=== PATIENT | female | born 1955 | race Caucasian/White ===

== ENCOUNTER → 2017-05-23 | Outpatient (CLI) | payer BC ==
[~2017-05-23] MED LIST: ASPI-587 PO; FAMO-119 PO; LEVO125T6 PO; LISI20TA PO; MULT-963 PO; NAPR-243 PO; SIMV40TA4 PO
--- NOTE | 2017-05-23 18:54 | Diagnostic Imaging Report ---
EXAMINATION: AP view of the knees. INDICATION: Osteoarthritis. FINDINGS: There are advanced osteoarthritis changes with severe joint space narrowing in the medial compartment bilaterally with prominent osteophyte formation. There is suggestion of inferior osteophytes along the patella, on the right side that would be better evaluated on a lateral projection. The lateral compartment demonstrates preserved joint space with prominent osteophytes. IMPRESSION: Advanced osteoarthritis changes in the medial compartments bilaterally. Dictated by: Dictated on workstation # [id number]
== END ==
LOC: RAD 15:02
DX: M17.0 Bilateral primary osteoarthritis of knee (principal)
CPT/HCPCS: 73565

== ENCOUNTER 2019-12-10 09:54 | Outpatient (CLI) | payer MEDICARE, OTHER ==
[~2019-12-10] VITALS: Ht 157.5 cm; Wt 90.8 kg
[2019-12-10 10:07] VITALS: BP 172/80
[2019-12-10 10:59] LABS: BASOPHILS # (AUTO) 0.1 10^3/uL (0.0-0.1); BASOPHILS % (AUTO) 1 % (0-10); EOSINOPHILS # (AUTO) 0.2 10^3/uL (0.0-0.3); EOSINOPHILS % (AUTO) 3 % (0-10); HEMATOCRIT 40 % (35-52); HEMOGLOBIN 12.9 G/DL (11.5-16.0); LYMPHOCYTES # (AUTO) 2.1 X 10^3 (1.0-4.0); LYMPHOCYTES % (AUTO) 38 % (12-44); MEAN CORPUSCULAR HEMOGLOBIN 30 PG (25-34); MEAN CORPUSCULAR HGB CONC 33 G/DL (32-36); MEAN CORPUSCULAR VOLUME 93 FL (80-99); MEAN PLATELET VOLUME 9.2 FL (7.4-10.4); MONOCYTES # (AUTO) 0.5 X 10^3 (0.0-1.0); MONOCYTES % (AUTO) 8 % (0-12); NEUTROPHILS # (AUTO) 2.8 X 10^3 (1.8-7.8); NEUTROPHILS % (AUTO) 50 % (42-75); PLATELET COUNT 263 10^3/uL (130-400); RED CELL DISTRIBUTION WIDTH 13.3 % (10.0-14.5); WHITE BLOOD COUNT 5.6 10^3/uL (4.3-11.0)
[2019-12-10 11:01] LABS: BILIRUBIN,URINE NEGATIVE (NEGATIVE); CLARITY,URINE SL CLOUDY; COLOR,URINE YELLOW; GLUCOSE, URINE (UA) NEGATIVE (NEGATIVE); KETONES,URINE NEGATIVE (NEGATIVE); LEUKOCYTE ESTERASE ,URINE 2+ (NEGATIVE); NITRITE,URINE NEGATIVE (NEGATIVE); PROTEIN,URINE NEGATIVE (NEGATIVE)
[2019-12-10 11:08] LABS: BACTERIA,URINE MODERATE /HPF; RBC,URINE 0-2 /HPF; WBC,URINE TNTC /HPF
[2019-12-10 11:10] LABS: INR 0.9 (0.8-1.4)
--- NOTE | 2019-12-10 11:11 | Diagnostic Imaging Report ---
INDICATION: Preoperative evaluation, right knee arthroplasty. COMPARISON: None available. TECHNIQUE: Frontal and lateral radiographs of the chest dated December 10, 2019. FINDINGS: The cardiac silhouette and pulmonary vasculature are within normal limits. The lungs are clear without focal pulmonary opacity. No pleural effusion. No pneumothorax. Scattered osseous degenerative changes without acute osseous abnormality. IMPRESSION: No acute cardiopulmonary abnormality. Dictated by: Dictated on workstation # [id number]
[2019-12-10 11:20] LABS: ERYTHROCYTE SEDIMENTATION RATE 24 MM/HR (0-30)
[2019-12-10 11:22] LABS: ALANINE AMINOTRANSFERASE 17 U/L (0-55); ALBUMIN 4.4 GM/DL (3.2-4.5); ALKALINE PHOSPHATASE 64 U/L (40-136); BILIRUBIN,TOTAL 0.4 MG/DL (0.1-1.0); BUN/CREATININE RATIO 20; CALCIUM 9.8 MG/DL (8.5-10.1); CARBON DIOXIDE 25 MMOL/L (21-32); CHLORIDE 105 MMOL/L (98-107); GFR ESTIMATED > 60; GLUCOSE 123 MG/DL (70-105); SODIUM 139 MMOL/L (135-145); TOTAL PROTEIN 7.5 GM/DL (6.4-8.2)
[2019-12-10] MEDS ORDERED: NAPR-915 PO (11:41)
[2019-12-10] MEDS ORDERED: FAMO20TA3 PO (11:41)
[2019-12-10] MEDS ORDERED: MULT1TAB69 PO (11:41)
[2019-12-10] MEDS ORDERED: ESTR42.511 VG (11:41)
[2019-12-10] MEDS ORDERED: ASPI-999 PO (11:41)
[2019-12-10] MEDS ORDERED: SIMV80TA21 PO (11:41)
[2019-12-10] MEDS ORDERED: HYDR12.56 PO (11:41)
[2019-12-10] MEDS ORDERED: LEVO112T55 PO (11:41)
== END 2019-12-10 11:05 | disposition home or self-care (01) ==
LOC: PREOP 09:54
PROVIDERS: ATTEND Orthopaedic Surgery
DX: Z01.818 Encounter for other preprocedural examination (principal); Z01.812 Encounter for preprocedural laboratory examination; M17.11 Unilateral primary osteoarthritis, right knee
CPT/HCPCS: 36415; 71046; 80053; 81000; 85025; 85610; 85652; 86850; 86900; 86901; 87077; 87081; 87088; 87186; 93005

== ENCOUNTER 2019-12-17 05:51 | Inpatient (IN) | payer MEDICARE, OTHER ==
--- NOTE | 2019-12-11 10:41 | HISTORY AND PHYSICAL ---
DATE OF SERVICE: Date of service, surgery and admission will be 12/17/2019 for a right total knee arthroplasty. The patient will require regular inpatient admission for pain management, need for physical therapy due to gait abnormalities and comorbidities. HISTORY OF PRESENT ILLNESS: The patient is a 64-year-old female with longstanding bilateral knee pain. She reports right worse than left pain. She reports activity limitations because of the knees. She has undergone treatment with neural ablation. She has also undergone treatment with injections including stem cells. She reports loss of motion and progressive loss of function. Due to functional impairment and failure to improve with conservative measures, the patient has elected to proceed with total knee arthroplasty. REVIEW OF SYSTEMS: No chest pain, no shortness of breath, no dysuria. PAST MEDICAL HISTORY: Hypertension, hyperlipidemia, . PAST SURGICAL HISTORY: Tubal ligation. FAMILY HISTORY: Significant for cancer, coronary artery disease, COPD. PRIMARY CARE PROVIDER: Dr. Corona. MEDICATIONS: Lisinopril, hydrochlorothiazide, simvastatin, estradiol, aspirin. ALLERGIES: No known drug allergies. SOCIAL HISTORY: The patient denies alcohol and tobacco use. RADIOGRAPHS: Reveal severe tricompartmental osteoarthritis with severe osteophyte formation noted throughout all three compartments with loose bodies noted. PHYSICAL EXAMINATION: GENERAL: The patient is well developed, well-nourished, in no acute distress. HEENT: Normocephalic, atraumatic. Pupils are equal, round and reactive to light. Oropharynx is clear. NECK: Supple, no lymphadenopathy. LUNGS: Clear to auscultation bilaterally. HEART: Regular rate and rhythm. ABDOMEN: Soft, nontender, nondistended. EXTREMITIES: The right knee demonstrates varus alignment. She ambulates with an antalgic gait. She has flexed knee gait on her right, flexion is proximal to approximately 80 degrees. She lacks 5 degrees to full extension. No varus valgus laxity. She has marked patellofemoral crepitus with moderate effusion noted. IMPRESSION: Severe right knee osteoarthritis. PLAN: Right total knee arthroplasty. The risks, benefits, options, ramifications and recovery have been discussed at length with the patient. She understands and wishes to proceed. Job ID: [id number] DocumentID: [id number] Dictated Date: 12/03/2019 12:33:31 Lumber Inspector Date: 12/03/2019 13:04:09 Dictated By: MELIDA ZARAGOZA MD
[~2019-12-17] VITALS: Ht 157 cm; Wt 90.8 kg
[2019-12-17] VITALS (9 sets, daily range): BP systolic 78–159; BP diastolic 42–79
[~2019-12-17 05:51] MED LIST changes: +ASPI-999 PO; +ESTR42.511 VG; +FAMO20TA3 PO; +HYDR12.56 PO; +LEVO112T55 PO; +MULT1TAB69 PO; +NAPR-915 PO; +SIMV80TA21 PO
[2019-12-17] MEDS ORDERED: CEFUROXIME INJECTION 1,500 MG in WATER (STERILE) FOR INJECTION 15 ML IV ONE (06:15)
[2019-12-17] MEDS ORDERED: ONDANSETRON 4 MG/2 ML (SDV) Z0FRAN ONE (06:26)
[2019-12-17] MEDS ORDERED: fentaNYL INJECTION 100 MCG/2 ML AMP ONE (06:26)
[2019-12-17] MEDS ORDERED: SEVOFLURANE (ULTANE) 15 ML INHAL SOLN ONE (06:26)
[2019-12-17] MEDS ORDERED: BUPIVACAINE 0.5% 30 ML (SENSORCAINE) VIAL ONE (06:26)
[2019-12-17] MEDS ORDERED: DEXAMETHASONE 10 MG/ML (DECADRON) 1 ML VIAL ONE (06:26)
[2019-12-17] MEDS ORDERED: MIDAZOLAM 2 MG/2 ML (VERSED) VIAL ONE ×2 (06:26→07:25)
[2019-12-17] MEDS ORDERED: proPOfol 200 MG/20 ML (DIPRIVAN) VIAL IV ONE ×2 (06:26→09:23)
[2019-12-17] MEDS ORDERED: LIDOCAINE PF 2% 5 ML (XYLOCAINE) VIAL ONE (06:26)
[2019-12-17] MEDS ORDERED: TRANEXAMIC ACID 100 MG/ML 10 ML INJECTION IV ONE (06:34)
[2019-12-17] MEDS ORDERED: CATHETER FLUSH 10 ML SYR IV PRN (06:45)
[2019-12-17] MEDS: LACTATED RINGERS 1,000 ML IV PRN ×2 (06:56→07:31)
[2019-12-17] MEDS ORDERED: diphenhydrAMINE 50 MG/ML INJ (BENADRYL) IVP PRN (07:15)
[2019-12-17] MEDS ORDERED: ONDANSETRON 4 MG/2 ML (SDV) Z0FRAN IVP PRN ×2 (07:15→09:30)
[2019-12-17] MEDS ORDERED: morphine PCA 100 MG/100 ML BAG IV PRN (07:15)
--- NOTE | 2019-12-17 07:28 | Progress Note-Post Operative ---
Post-Operative Progess Note Surgeon (s)/Fashion Stylist (s) Surgeon MELIDA ZARAGOZA MD Fashion Stylist: Idris Hernandez Pre-Operative Diagnosis right knee primary osteoarthritis Post-Operative Diagnosis right knee primary osteoarthritis Procedure & Operative Findings Date of Procedure 12/17/19 Procedure Performed/Findings right total knee arthroplasty Anesthesia Type spinal Estimated Blood Loss Estimated blood loss (mL): minimal Specimens/Packing Specimens Removed none Packing: none MELIDA ZARAGOZA MD Dec 17, 2019 07:28
--- NOTE | 2019-12-17 07:28 | Progress Note-Pre Operative ---
Pre-Operative Progress Note H&P Reviewed The H&P was reviewed, patient examined and no changes noted. Date Seen by Provider: Dec 17, 2019 Time Seen by Provider: 07:20 Date H&P Reviewed: Dec 17, 2019 Time H&P Reviewed: 07:11 Pre-Operative Diagnosis: right knee primary osteoarthritis MELIDA ZARAGOZA MD Dec 17, 2019 07:28
[2019-12-17] MEDS ORDERED: OXYC1TAB87 PO (07:30)
[2019-12-17] MEDS ORDERED: INTRA-ARTICULAR IU ONE ×5 (07:30)
--- NOTE | 2019-12-17 07:31 | D/C HH Face to Face Order ---
D/C Face to Face Orders Reconcile Patient Problems Problems Reviewed?: Yes Instructions for Patient [facility], Patient Instructions/FollowUp: three weeks Physician to follow Patient: three weeks Discharge Diet for Home: Regular Diet Patient Data-Allergies,Ht & Wt Patient Allergies: Coded Allergies: Sulfa (Sulfonamide Antibiotics) (Verified Allergy, Unknown, Rash, 12/10/19) Height (Feet): 5 Height (Inches): 2.00 Weight (Pounds): 198 Home Health Need/Face to Face Date of Face to Face: Dec 17, 2019 Clinical Findings: Instability, Muscle weakness, Pain with ambulation, Unsteady gait I have seen Pt [id number]-kh-[id number]: Yes Discharged To: Home Diagnosis/Conditions: right total knee arthroplasty Patient is Homebound due to: Panchito fall risk due to instabilty, Muscle weakness, Pain w/ambulation Homebound Status Due to the above stated illness, injury or surgical procedure (medical condition or diagnosis) and associated clinical findings, the patient is homebound because of his/her inability to leave home except with aid of a supportive device and/or person AND leaving the home requires a considerable and taxing effort or is medically contraindicated. Pt req the following assistanc: Walker Home Health Nursing Orders Home Health Services Order: Physical Therapy-Evaluate & Treat DC right knee cara and apply steri strips 12/31/19 Home Health Infusion Therapy Line Start Date: Dec 17, 2019 Therapy Orders Therapy Orders: Physical Therapy, PT to assess for OT Therapy Specific Orders: Eval assistive deivces, Gait training, Increase strength/endurance, Provider maintenance therapy, Restore ROM Certify Stmt I certify that this patient is under my care and that I, a nurse practitioner or a physician; a activity assistant working with me, had a face to face encounter that - meets the physician face to face encounter requirements with this patient as dated. MELIDA ZARAGOZA MD Dec 17, 2019 07:31
--- NOTE | 2019-12-17 09:59 | NUR ---
PATIENT NOT ON FLOOR AT THIS TIME. Addendum: 12/17/19 at 1002 by GUILLAUME LAUREANO RN Amended: Links added.
--- NOTE | 2019-12-17 10:10 | NUR ---
JUAN R TRAVIS admitted to room 430-1, with an admitting diagnosis of RIGHT TKR, on 12/17/19 from DAY SURGERY via [facility], accompanied by Elina STANLEY RN. JUAN R TRAVIS introduced to surroundings, call light, bed controls, phone, TV, temperature control, lights, meal times, smoking policy, visitor policy, side rail policy, bathrooms and showers. Patient Rights given to patient in the handbook. JUAN R TRAVIS verbalizes understanding that [facility] is not responsible for the loss or damage to any personal effects or valuables that are kept in the patients posession during their hospitalization. JUAN R TRAVIS verbalizes understanding of Interdisciplinary Patient Education. Patient and/or family were informed about the Rapid Response Team and its purpose.
[2019-12-17] MEDS ORDERED: morphine PCA 100 MG/100 ML BAG IV ONE (10:17)
[2019-12-17] MEDS ORDERED: NS IV 1000 ML 1,000 ML ONE (10:17)
--- NOTE | 2019-12-17 10:33 | Diagnostic Imaging Report ---
INDICATION: Postoperative. TECHNIQUE: 2 post operative radiographs of the knee 9:37 AM CORRELATION STUDY: 05/23/2017 FINDINGS: There are postsurgical changes of a total knee arthroplasty. Alignment is anatomic. Installed hardware appearing unremarkable. Small areas of bone fragmentation present. Likely resurfacing of the patella. Slightly prominent spur at the inferior pole. Overlying soft tissue gas collections and skin cara are present. IMPRESSION: Postsurgical changes of a total knee replacement. Dictated by: Dictated on workstation # [id number]
[2019-12-17] MEDS ORDERED: SENNA W/DOCUSATE (SENOKOT S) TABLET ONE (10:47)
[2019-12-17] MEDS: NS IV 1000 ML 1,000 ML IV SCH ×3 (10:51→22:34)
[2019-12-17] MEDS: SENNA W/DOCUSATE (SENOKOT S) TABLET PO SCH ×2 (10:52→20:47)
--- NOTE | 2019-12-17 11:34 | NUR ---
MORPHINE SULFATE 100 MG BAG AND 1 LITER BAG OF NORMAL SALINE REMOVED FROM OMNICELL VIA AND OVERRIDE SO THIS RN COULD START HER MORPHINE GRAND SCRIBE PER DR. ZARAGOZA'S ORDERS. THIS RN WILL CONTINUE TO MONITOR THIS PATIENT THROUGHOUT THE REMAINDER OF THIS SHIFT.
--- NOTE | 2019-12-17 12:20 | Progress Note ---
Standard Progress Note Progress Notes/Assess & Plan Date Seen by a Provider: Dec 17, 2019 Time Seen by a Provider: 12:00 Progress/Assessment & Plan post op check No complaints radiographs--HW well positioned without fracture. RLE--2 plus DP pulse with brisk cap refill. spinal still in effect s/p RTKA mobilize when able MELIDA ZARAGOZA MD Dec 17, 2019 12:20
--- NOTE | 2019-12-17 13:51 | OPERATIVE REPORT ---
DATE OF SERVICE: 12/17/2019 PREOPERATIVE DIAGNOSIS: Right knee primary osteoarthritis. POSTOPERATIVE DIAGNOSIS: Right knee primary osteoarthritis. PROCEDURE: Right total knee arthroplasty. SURGEON: Mateo Zaragoza MD ACETALDEHYDE CONVERTER OPERATOR: Idris Hernandez, who assisted throughout the procedure and closed the incision. ANESTHESIA: General endotracheal by Dr. Su. TOURNIQUET TIME: Approximately 65 minutes at 300 mmHg. ESTIMATED BLOOD LOSS: Minimal. DRAINS: None. COMPLICATIONS: None. POSTOPERATIVE PLAN: Routine protocol. The patient was transferred to recovery room awake and stable condition. MATERIALS: Microport cemented size 5 femur, cemented size 5 tibia with a 12 mm insert and cemented size 29 patellar button. STATEMENT OF MEDICAL NECESSITY: The patient is a 64-year-old female with longstanding progressive right knee pain. Radiographs revealed severe tricompartmental osteoarthritis. She tried injections, anti-inflammatories as well as pain management without relief and due to functional impairment and failure to improve with conservative measures, the patient elected to proceed with surgical intervention. DESCRIPTION OF PROCEDURE: After risks and benefits of procedure were discussed and questions were answered, an informed consent was signed and placed on chart, the operative site was confirmed in the preoperative holding area initialed by the surgeon. The patient was then transferred to the operating room. After adequate levels of regional anesthetic were obtained, a timeout was called, confirming the operative site. The right lower extremity was prepped and draped in the usual sterile fashion with the leg elevated and the knee flexed, tourniquet was inflated to 300 mmHg. Standard anterior approach was utilized. Hemostasis was obtained with cautery. Medial parapatellar arthrotomy was performed leaving 1 cm cuff on the patella for later reattachment. A portion of the fat pad was resected. There was a large loose body anteriorly as well as superiorly. These were resected. Subperiosteal release was performed on the proximal medial tibia being careful stay on the bony surface. The patella was prepared by resecting 10 mm off the undersurface using the freehand technique. The peg guide was placed and peg holes were drilled. The ACL was resected. Intramedullary guide was passed into the femur. The distal cutting block was placed. Distal cut was made. Femur sized to a size 5, the 5 cutting block was placed parallel to the epicondylar axis and cuts were made from posterior to anterior. Subperiosteal release was then carefully performed on the posterior distal femur, being careful to stay on the bony surface. There were multiple loose bodies posteriorly, which were resected without complications. The intramedullary guide was then passed into the tibia. The cutting block was placed and drop yin transected the intermalleolar axis the cut was made. The five baseplate was pinned into position. The drop yin transected the intermalleolar axis. This was prepared with the drill and keel punch. The trials were inserted. The trochlear cut was made. With a 12 mm insert full extension was easily obtained, 120 degrees of flexion with gravity was easily obtained. The patella tracked well. There was no anterior/posterior or medial/lateral laxity in flexion or full extension. The trials were removed. The joint was irrigated with pulse lavage. Periarticular block was placed in the posterior capsule, medial and lateral retinaculum extensor mechanism subcutaneous tissues. The bone ends were irrigated and dried. Tibial baseplate was cemented into position and excessive cement was removed. Superior surface was irrigated and dried and polyethylene insert was placed. Distal femur was irrigated and the femoral prosthesis was cemented into position. The undersurface of patella was irrigated and dried. The patellar button was cemented into position. The knee was held in full extension until cement had cured. Once the cement had cured, the knee was taken through range of motion. Full extension was easily obtained. 120 degrees of flexion with gravity was easily obtained. There was no anterior/posterior or medial/lateral laxity in flexion or extension. The joint was further irrigated with pulse lavage. Arthrotomy was closed with #2 Tevdek in bsjcrb-pv-[id number] fashion. The wound was further irrigated. 0 Vicryl was used to deep subcutaneous tissue and 2-0 Vicryl for the superficial subcutaneous tissue. Prior to wound closure was assured the patella tracked well and there was no undue tension noted at the repair site. [place] used on the skin. A soft dressing was applied. The tourniquet was deflated. The patient was transferred to recovery room awake and in stable condition. Job ID: [id number] DocumentID: [id number] Dictated Date: 12/17/2019 09:28:32 Link Assembler Date: 12/17/2019 13:50:34 Dictated By: MATEO ZARAGOZA MD
--- NOTE | 2019-12-17 14:05 | Physical Therapy Evaluation ---
PT Evaluation-General Medical Diagnosis Admission Date Dec 17, 2019 at 05:51 Medical Diagnosis: Right TKA Onset Date: Dec 17, 2019 Therapy Diagnosis Therapy Diagnosis: Muscle weakness, loss of ROM Height/Weight Height (Feet): 5 Height (Inches): 2.00 Weight (Pounds): 198 Precautions Precautions/Isolations: Fall Prevention, Standard Precautions Weight Bear Status Right Lower Extremity: Right Weight Bearing/Tolerated Referral Physician: David Reason for Referral: Evaluation/Treatment Medical History Pertinent Medical History: HTN Current History Patient presents post R TKA Reviewed History: Yes Social History Home: Single Level Current Living Status: Spouse Entry Into Home: Stairs With Railing PT Steps Into Home: 5 PT Steps Inside Home: 0 Prior Prior Level of Function SCALE: Activities may be completed with or without assistive devices. 9-Zyaopyztng-bjbabat completes the activity by him/herself with no assistance from a helper. 5-Set-up or Clean-up Assistance-helper sets up or cleans up; patient completes activity. [place] assists only prior to or following the activity. 4-Supervision or Touching Assistance-helper provides verbal cues and/or touching/steadying and/or contact guard assistance as patient completes activity. Assistance may be provided throughout the activity or intermittently. 3-Partial/Moderate Assistance-helper does LESS THAN HALF the effort. [place] lifts, holds or supports trunk or limbs, but provides less than half the effort. 2-Substantial/Maximal Assistance-helper does MORE THAN HALF the effort. [place] lifts or holds trunk or limbs and provides more than half the effort. 6-Vdekaajqe-zxsgzc does ALL the effort. Patient does none of the effort to complete the activity. Or, the assistance of 2 or more helpers is required for the patient to complete the activity. If activity was not attempted, code reason: 7-Patient Refused. 9-Not Applicable-not attempted and the patient did not perform the activity before the current illness, exacerbation or injury. 10-Not Attempted due to Environmental Limitations-(lack of equipment, weather restraints, etc.). 88-Not Attempted due to Medical Conditions or Safety Concerns. Bed Mobility: 6 Transfers (B,C,W/C): 6 Gait: 6 Stairs: 6 Indoor Mobility (Ambulation): Independent Stairs: Independent Prior Devices Use: None PT Evaluation-Current Subjective Patient is agreeable to therapy at this time. Pain Numeric Pain Scale: 3 Location: Right Location Body Site: Knee Pt/Family Goals To get stronger and get home. Objective Patient Orientation: Person, Place, Time, Situation Attachments: IV ROM/Strength ROM Lower Extremities R knee lacking abut 5 degrees of extension to about 90 degrees of flexion. Strength Lower Extremities Expected RLE weakness following surgery. Integumentary/Posture Integumentary See nursing notes. Sensory Vision: Functional Hearing: Functional Sensation Right Lower Extremit: Impaired Sensation Left Lower Extremity: Intact Transfers Roll Left to Right (QC): 6 Sit to Lying (QC): 5 Lying to Sitting/Side of Bed(Q: 5 Sit to Stand (QC): 4 Chair/Tfn-ft-Hstcv Xfer(QC): 4 Toilet Transfer: 4 Gait Does the Patient Walk?: Yes Mode of Locomotion: Walk Anticipated Mode of Locomotion: Walk Walk 10 feet (QC): 4 Distance: 40' Gait Assistive Device: FWW Comments/Gait Description CGA for safety. Patient had spinal block. Patient is stable and able to bear weight on RLE. Good step through ambulation. Wheelchair Training Does the Pt Use a Wheelchair?: No Balance Sitting Static: Good Sitting Dynamic: Good Standing Static: Good Standing Dynamic: Good Treatment RLE supine exercises x 10: ankle pumps, SAQ, SLR, quad sets, and heel slides. Assessment/Needs Patient tolerates exercises well and is able to do them all actively with no assistance. Patient has limited ROM with ankle pumps at this time. Patient ambulates well to and from the bathroom. Patient in bed with call light and bedside table within reach, CPM on, set at 0/60. Rehab Potential: Good PT Usp Goals Net Mvc Developer Goals PT Usp Goals Time Frame: Dec 24, 2019 Roll Left & Right (QC): 6 Sit to Lying (QC): 6 Lying-Sitting on Side/Bed(QC): 6 Sit to Stand (QC): 6 Chair/Zag-ed-Uzptb Xfer(QC): 6 Toilet Transfer (QC): 6 Does the Patient Walk: Yes Walk 10 feet (QC): 6 Walk 50ft with 2 Turns (QC): 6 Walk 150 ft (QC): 6 1 Step (curb) (QC): 4 4 Steps (QC): 4 PT Plan Problem List Problem List: Activity Tolerance, Functional Strength, Safety, Balance, Gait, Transfer, Bed Mobility, ROM Treatment/Plan Treatment Plan: Continue Plan of Care Treatment Plan: Bed Mobility, Education, Functional Activity Deejay, Functional Strength, Gait, Safety, Therapeutic Exercise, Transfers Treatment Duration: Dec 24, 2019 Frequency: 11 times per week Estimated Hrs Per Day: .25 hour per day Patient and/or Family Agrees t: Yes Safety Risks/Education Patient Education: Gait Training, Transfer Techniques, Correct Positioning, Safety Issues Teaching Recipient: Patient Teaching Methods: Demonstration, Discussion Response to Teaching: Reinforcement Needed Discharge Recommendations Plan Patient will perform bed mobility training, step training, transfer training, gait training, and balance training. Therapy Discharge Recommendati: Home & Family Time/GCodes Time In: 1305 Time Out: 1330 Total Billed Treatment Time: 25 Total Billed Treatment 1 visit EVL 12 FA 13 KAMERON BE PT Dec 17, 2019 14:05
[2019-12-17] MEDS: CEFUROXIME INJECTION 750 MG in WATER (STERILE) FOR INJECTION 10 ML IV SCH ×2 (14:36→23:57)
[2019-12-17] MEDS: oxyCODONE/APAP 5/325MG (PERCOCET 5) TABLET PO PRN ×3 (15:42→22:40)
[2019-12-17] MEDS: ACETAMINOPHEN 325 MG TABLET PO PRN ×2 (16:17→20:49)
[2019-12-17] MEDS ORDERED: hydrALAZINE (APESOLINE) 20 MG/ML VIAL IV PRN (16:45)
--- NOTE | 2019-12-17 16:51 | Consultation - Hospitalist ---
HPI History of Present Illness: HPI/Chief Complaint Alem Núñez is a 64-year-old female with past medical history of hypertension, hyperlipidemia, hypothyroidism, GERD, osteoarthritis, who presented for total kn ee replacement. She underwent to surgery today and he reportedly went well. She has no complaints or concerns postoperatively. Eyes any fevers, chills, chest pain, shortness of breath, abdominal pain, nausea, vomiting, or diarrhea. Source: patient Exam Limitations: no limitations Date Seen 12/17/19 Attending Physician Mateo Jackson MD PCP Brayan Corona DO Referring Physician Date of Admission Dec 17, 2019 at 05:51 Home Medications & Allergies Home Medications Reviewed patient Home Medication Reconciliation performed by pharmacy medication reconciliations ophthalmic medical technician and/or nursing. Patients Allergies have been reviewed. Allergies Allergies Coded Allergies Sulfa (Sulfonamide Antibiotics) (Verified Allergy, Unknown, Rash, 12/10/19) Past Thavcev-Hwavad-Snmgax Hx Past Med/Social Hx: Reviewed Nursing Past Med/Soc Hx Patient Social History Alcohol Use: Denies Use Recreational Drug Use: No Smoking Status: Never a Smoker Physical Abuse Screen: No Sexual Abuse: No Recent Foreign Travel: No Contact w/other who traveled: No Recent Hopitalizations: No Recent Infectious Disease Expo: No Seasonal Allergies Seasonal Allergies: Yes Past Medical History Musculoskeletal: Arthritis History of Blood Disorders: No Family History Cardiovascular disease 19 MOTHER Diabetes mellitus 19 FATHER G8 BROTHER Hypertension 19 MOTHER Kidney disease 19 FATHER (KIDNEY CA) Thyroid disease G8 SISTER Review of Systems Constitutional: no symptoms reported EENTM: no symptoms reported Respiratory: no symptoms reported Cardiovascular: no symptoms reported Gastrointestinal: no symptoms reported Genitourinary: no symptoms reported Musculoskeletal: no symptoms reported Skin: no symptoms reported Psychiatric/Neurological: No Symptoms Reported Physical Exam Physical Exam Vital Signs Vital Signs - First Documented Capillary Refill : Less Than 3 Seconds Height, Weight, BMI Height: 5'2.00" Weight: 198lbs. oz. 89.597880tp; 36.83 BMI Method: General Appearance: No Apparent Distress, Obese Respiratory: Lungs Clear, Normal Breath Sounds, No Respiratory Distress Cardiovascular: Regular Rate, Rhythm, No Edema, No Murmur Gastrointestinal: Normal Bowel Sounds, Non Tender, Soft Extremity: No Pedal Edema, Other (Right knee wrapped) Neurologic/Psychiatric: Alert, Oriented x3, No Motor/Sensory Deficits, Normal Mood/Affect Skin: Normal Color, Warm/Dry Results Results/Procedures Labs Patient resulted labs reviewed. Assessment/Plan Assessment and Plan Assess & Plan/Chief Complaint Status post total knee replacement Osteoarthritis Underwent surgery 3/4 Pain regimen ordered Bowel regimen in place Incentive spirometer PT/OT Hypertension Continue lisinopril Hold hydrochlorothiazide Hydralazine as needed Hypothyroidism Continue Synthroid DVT prophylaxis: Lovenox Thank you for the consult. Do not hesitate to contact the hospitalist group any questions or concerns. Diagnosis/Problems Diagnosis/Problems (1) Status post total knee replacement, right Status: Acute (2) Osteoarthritis of right knee Status: Chronic (3) Hypertension Status: Chronic Qualifiers: Hypertension type: essential hypertension Qualified Codes: I10 - Essential (primary) hypertension (4) Hypothyroidism Status: Chronic Clinical Quality Measures DVT/VTE Risk/Contraindication: Risk Factor Score Per Nursin RFS Level Per Nursing on Admit: 3=High ASPEN ALDRIDGE MD Dec 17, 2019 16:51
[2019-12-17] MEDS: lisINopril 20 MG (PRINIVIL) TABLET PO SCH (20:48)
[2019-12-17] MEDS ORDERED: lisINopril 40 MG (PRINIVIL) TABLET PO SCH (21:00)
[2019-12-18] VITALS: BP 131/73
[2019-12-18 04:00] VITALS: BP 128/60
[2019-12-18] MEDS: oxyCODONE/APAP 5/325MG (PERCOCET 5) TABLET PO PRN ×7 (04:30→23:59)
[2019-12-18] MEDS: MULTIVIT W/MINERALS TAB (THERAGRAN M) PO SCH (06:17)
[2019-12-18] MEDS: ENOXAPARIN 30 MG/0.3 ML (LOVENOX) SYR SC SCH ×2 (06:17→18:55)
[2019-12-18 06:30] LABS: HEMOGLOBIN 9.2 G/DL (11.5-16.0)
[2019-12-18 06:49] LABS: BUN/CREATININE RATIO 16; CALCIUM 7.8 MG/DL (8.5-10.1); CARBON DIOXIDE 23 MMOL/L (21-32); CHLORIDE 100 MMOL/L (98-107); CREATININE SERUM 0.69 MG/DL (0.60-1.30); GFR ESTIMATED > 60; GLUCOSE 114 MG/DL (70-105); POTASSIUM 3.8 MMOL/L (3.6-5.0); SODIUM 130 MMOL/L (135-145)
--- NOTE | 2019-12-18 07:38 | Anesthesia-General Post-Op ---
General Patient Condition Mental Status/LOC: Same as Preop Cardiovascular: Satisfactory Nausea/Vomiting: Absent Respiratory: Satisfactory Pain: Controlled Complications: Absent Post Op Complications Complications None Follow Up Care/Instructions Patient Instructions None needed. Anesthesia/Patient Condition Patient Condition Patient is doing well, no complaints, stable vital signs, no apparent adverse anesthesia problems. No complications reported per nursing. EMMANUELLE CHENEY CRNA Dec 18, 2019 07:38
--- NOTE | 2019-12-18 07:55 | Progress Note ---
Standard Progress Note Progress Notes/Assess & Plan Date Seen by a Provider: Dec 18, 2019 Time Seen by a Provider: 07:53 Progress/Assessment & Plan post op check No complaints radiographs--HW well positioned without fracture. RLE--2 plus DP pulse with brisk cap refill. spinal still in effect s/p RTKA mobilize when able Final Diagnosis NO complaints has been febrile, but was so pre op as well. Denies systemic illnesses. Recently treated for UTI Vital Signs Date Time Temp Pulse Resp B/P (MAP) Pulse Ox O2 Delivery O2 Flow Rate FiO2 12/18/19 06:25 18 12/18/19 04:00 38.4 78 20 128/60 (82) 93 Room Air 12/18/19 00:00 38.3 73 18 131/73 (92) 95 Room Air 12/17/19 21:19 38.7 12/17/19 20:50 95 Room Air 12/17/19 20:49 38.4 12/17/19 19:41 38.4 75 18 118/67 (84) 95 Room Air 12/17/19 16:17 39.4 12/17/19 16:00 39.4 82 18 153/79 (103) 96 Room Air 12/17/19 11:33 37.9 18 12/17/19 11:00 37.4 77 18 149/74 (99) 94 Room Air 12/17/19 10:50 37.9 18 12/17/19 10:15 Room Air 12/17/19 10:10 94 Room Air 12/17/19 10:00 Room Air 12/17/19 10:00 36.5 16 106/49 (68) 96 Room Air 12/17/19 09:50 Room Air 12/17/19 09:50 16 113/50 (71) 96 Room Air 12/17/19 09:40 16 108/55 (72) 96 Room Air 12/17/19 09:35 Room Air 12/17/19 09:30 16 78/68 (71) 94 Room Air 12/17/19 09:20 37.6 16 84/42 (56) 94 Room Air I & O 12/18/19 07:00 Intake Total 4175 ml Output Total 525 ml Balance 3650 ml Laboratory Tests Test 12/18/19 05:47 Range/Units Hemoglobin 9.2 L 11.5-16.0 G/DL Hematocrit 29 L 35-52 % Sodium Level 130 L 135-145 MMOL/L Potassium Level 3.8 3.6-5.0 MMOL/L Chloride Level 100 98-107 MMOL/L Carbon Dioxide Level 23 21-32 MMOL/L Anion Gap 7 5-14 MMOL/L Blood Urea Nitrogen 11 7-18 MG/DL Creatinine 0.69 0.60-1.30 MG/DL Estimat Glomerular Filtration Rate > 60 BUN/Creatinine Ratio 16 Glucose Level 114 H 70-105 MG/DL Calcium Level 7.8 L 8.5-10.1 MG/DL RLE--NVI distally no calf tenderness neg SLR s/p RTKA doing well will check UA no need for blood cultures MELIDA ZARAGOZA MD Dec 18, 2019 07:55
[2019-12-18 08:00] VITALS: BP 117/63
[2019-12-18] MEDS: SENNA W/DOCUSATE (SENOKOT S) TABLET PO SCH ×2 (08:35→19:40)
[2019-12-18] MEDS: ASPIRIN E.C. 81 MG (ECOTRIN) TAB PO SCH (08:35)
[2019-12-18] MEDS: lisINopril 20 MG (PRINIVIL) TABLET PO SCH ×2 (08:35→19:40)
--- NOTE | 2019-12-18 10:05 | Physical Therapy Daily Note ---
PT Daily Note-Current Subjective Patient is agreeable to therapy at this time. Pain Numeric Pain Scale: 3 Location: Right Location Body Site: Face Appearance Patient in bed with call light and bedside table within reach. CPM on and set at 0/66. Mental Status Patient Orientation: Person, Place, Time, Situation Attachments: IV Transfers SCALE: Activities may be completed with or without assistive devices. 1-Mckpzjmvaa-cnrfjyz completes the activity by him/herself with no assistance from a helper. 5-Set-up or Clean-up Assistance-helper sets up or cleans up; patient completes activity. [place] assists only prior to or following the activity. 4-Supervision or Touching Assistance-helper provides verbal cues and/or touching/steadying and/or contact guard assistance as patient completes activity. Assistance may be provided throughout the activity or intermittently. 3-Partial/Moderate Assistance-helper does LESS THAN HALF the effort. [place] lifts, holds or supports trunk or limbs, but provides less than half the effort. 2-Substantial/Maximal Assistance-helper does MORE THAN HALF the effort. [place] lifts or holds trunk or limbs and provides more than half the effort. 8-Nhfnvvoat-lklakc does ALL the effort. Patient does none of the effort to complete the activity. Or, the assistance of 2 or more helpers is required for the patient to complete the activity. If activity was not attempted, code reason: 7-Patient Refused. 9-Not Applicable-not attempted and the patient did not perform the activity before the current illness, exacerbation or injury. 10-Not Attempted due to Environmental Limitations-(lack of equipment, weather restraints, etc.). 88-Not Attempted due to Medical Conditions or Safety Concerns. Roll Left & Right (QC): 6 Sit to Lying (QC): 6 Lying to Sitting/Side of Bed(Q: 6 Sit to Stand (QC): 4 Toilet Transfer (QC): 4 Weight Bearing Right Lower Extremity: Right Weight Bearing/Tolerated Gait Training Does the Patient Walk?: Yes Distance: 150' Walk 10 feet (QC): 4 Walk 50 ft with 2 Turns(QC): 4 Walk 150 ft (QC): 4 Gait Persons Needed: 1 Gait Assistive Device: FWW Patient is starting to walk with normal gait cycle with heel toe pattern. Patient LLE bowed out. Wheelchair Training Does the Pt Use a Wheelchair?: No Exercises Supine Ex: Ankle pumps, Quad Set, Heel Slides, Short Arc Quads, Straight leg raise Supine Reps: 10 (RLE) Treatments RLE exercises, bed mobility, transfers, ambulation Assessment Current Status: Good Progress Patient tolerates exercises well and is able to perform all actively with no assistance. Patient is steady during ambulation and is walking with heel toe pattern. PT Field Marketing Lead Goals Field Marketing Lead Goals PT Skilled Nursing Goals Time Frame: Dec 24, 2019 Roll Left & Right (QC): 6 Sit to Lying (QC): 6 Lying-Sitting on Side/Bed(QC): 6 Sit to Stand (QC): 6 Chair/Iae-ko-Rtvph Xfer(QC): 6 Toilet Transfer (QC): 6 Does the Patient Walk: Yes Walk 10 feet (QC): 6 Walk 50ft with 2 Turns (QC): 6 Walk 150 ft (QC): 6 1 Step (curb) (QC): 4 4 Steps (QC): 4 PT Plan Problem List Problem List: Activity Tolerance, Functional Strength, Safety, Balance, Gait, Transfer, Bed Mobility, ROM Treatment/Plan Treatment Plan: Continue Plan of Care Treatment Plan: Bed Mobility, Education, Functional Activity Deejay, Functional Strength, Gait, Safety, Therapeutic Exercise, Transfers Treatment Duration: Dec 24, 2019 Frequency: 11 times per week Estimated Hrs Per Day: .25 hour per day Patient and/or Family Agrees t: Yes Safety Risks/Education Patient Education: Gait Training, Transfer Techniques Teaching Recipient: Patient Teaching Methods: Demonstration, Discussion Response to Teaching: Reinforcement Needed Time/GCodes Time In: 856 Time Out: 920 Total Billed Treatment Time: 24 Total Billed Treatment 1 visit GT 12 EX 12 ELBA KELLEY PT Dec 18, 2019 10:05
--- NOTE | 2019-12-18 11:30 | NUR ---
CM/SS visited patient for discharge planning. Plan: The patient will return home with with outpatient physical and a front wheeled walker. Outpatient Physical Therapy: The patient was provided with a Patient Preference Form. She stated that she already talked to Dr. Jackson about using outpatient in [place] and approved it. The patient has used [facility] with Yung Rehman previously and would like to continue using them. CM/SS called and spoke to Will ([phone]) and faxed over referral information and script. DME: The patient was provided with the preference form and chose [facility] [place] to get the front wheeled walker. CM/SS contacted [facility] to get a script for the walker. CM/SS will fax the script when available.
[2019-12-18] MEDS: NS IV 1000 ML 1,000 ML IV SCH ×2 (11:32→23:56)
[2019-12-18 12:00] VITALS: BP 112/68
--- NOTE | 2019-12-18 13:11 | Occupational Therapy Eval ---
OT Evaluation-General/PLF Medical Diagnosis Admission Date Dec 17, 2019 at 05:51 Medical Diagnosis: Right TKA Onset Date: Dec 17, 2019 Therapy Diagnosis Therapy Diagnosis: decr functiona mobility, decr self care Height/Weight Height (Feet): 5 Height (Inches): 2.00 Weight (Pounds): 198 Precautions Precautions/Isolations: Fall Prevention, Standard Precautions Safety Interventions: None Referral Physician: David Referral Reason: Evaluation/Treatment Medical History Pertinent Medical History: HTN Current History Elective R total knee 12/17/2019 Reviewed History: Yes Social History Home: Single Level Current Living Status: Spouse Entry Into Home: Stairs With Railing Steps Into Home: 5 Steps Inside Home: 0 ADL-Prior Level of Function SCALE: Activities may be completed with or without assistive devices. 9-Gckqiagmnf-zisordu completes the activity by him/herself with no assistance from a helper. 5-Set-up or Clean-up Assistance-helper sets up or cleans up; patient completes activity. [place] assists only prior to or following the activity. 4-Supervision or Touching Assistance-helper provides verbal cues and/or touching/steadying and/or contact guard assistance as patient completes activity. Assistance may be provided throughout the activity or intermittently. 3-Partial/Moderate Assistance-helper does LESS THAN HALF the effort. [place] lifts, holds or supports trunk or limbs, but provides less than half the effort. 2-Substantial/Maximal Assistance-helper does MORE THAN HALF the effort. [place] lifts or holds trunk or limbs and provides more than half the effort. 8-Mqzhwwyzb-epejlj does ALL the effort. Patient does none of the effort to complete the activity. Or, the assistance of 2 or more helpers is required for the patient to complete the activity. If activity was not attempted, code reason: 7-Patient Refused. 9-Not Applicable-not attempted and the patient did not perform the activity before the current illness, exacerbation or injury. 10-Not Attempted due to Environmental Limitations-(lack of equipment, weather restraints, etc.). 88-Not Attempted due to Medical Conditions or Safety Concerns. ADL PLOF Comments Pt reported that she needed no help with ADLs prior to surgery. Her bathroom has been modified with tall toilet and grab bars, and she has a shower chair. She has a toilet riser as well. Her will be able to help her at home if needed Self Care: Independent Functional Cognition: Independent DME/Equipment: Grab Bars, Tall Toilet, Tub/Shower, Toilet/Riser Occupation: retired OT Current Status Subjective Pt seen in room, up in recliner, agreeable to OT. Pt reported pain well managed. Appearance Alert, cooperative Mental Status/Objective Patient Orientation: Person, Place, Time, Situation Attachments: IV, Polar Pack Current Upper Extremity ROM Grossly WFL bilat Upper Extremity Strength Pt reported WFL bilat ADL-Treatment ADL-Current Pt has walked 150 feet with PT with FWW today. Got up from recliner without assistance and transferred to sit EOB, then get in bed without help. Pt has modified ADLs at home in the past and will have her available if she needs help. No skilled OT needs identified, with patient agreement. Education OT Patient Education: Modified ADL techniques, Purpose of tx/functional activities, Rehab process, Safety issues, Use of adapted equipment Teaching Recipient: Patient Teaching Methods: Discussion Response to Teaching: Verbalize Understanding OT Newspaper Editor Managing Goals Longterm Goals Time Frame: Dec 18, 2019 1=Demonstrate adherence to instructed precautions during ADL tasks. 2=Patient will verbalize/demonstrate understanding of assistive devices/modifications for ADL. 3=Patient will improve strength/tolerance for activity to enable patient to perform ADL's. OT Education/Plan Problem List/Assessment Assessment: No Skilled OT Needs ID'd Pt has no identified skilled OT needs. She has previously modified her ADLs and will have help at home if she needs it. DC OT Discharge Recommendations Plan Discontinue OT Plan/Recommendations: Discontinue OT Treatment Plan/Plan of Care Treatment,Training & Education: No (DC OT) Patient would benefit from OT for education, treatment and training to promote independence in ADL's, mobility, safety and/or upper extremity function for ADL's. Plan of Care: OTHER (DC OT) Treatment Duration: Dec 18, 2019 Frequency: 1 time per week Rehab Potential: Good Time/GCodes Start Time: 12:48 Stop Time: 13:03 Total Time Billed (hr/min): 16 Billed Treatment Time visit, 16 minutes evaluation low intensity SILAS COELLO OT Dec 18, 2019 13:11
--- NOTE | 2019-12-18 14:43 | Physical Therapy Daily Note ---
PT Daily Note-Current Subjective Patient is agreeable to therapy at this time. Pain Numeric Pain Scale: 6 Location: Right Location Body Site: Knee Appearance Patient in bed with call light and bedside table within reach. Family present. CPM on, set at 0/70. Mental Status Patient Orientation: Person, Place, Time, Situation Transfers SCALE: Activities may be completed with or without assistive devices. 1-Wjdjrxvzcs-lnbbnmk completes the activity by him/herself with no assistance from a helper. 5-Set-up or Clean-up Assistance-helper sets up or cleans up; patient completes activity. [place] assists only prior to or following the activity. 4-Supervision or Touching Assistance-helper provides verbal cues and/or touching/steadying and/or contact guard assistance as patient completes activity. Assistance may be provided throughout the activity or intermittently. 3-Partial/Moderate Assistance-helper does LESS THAN HALF the effort. [place] lifts, holds or supports trunk or limbs, but provides less than half the effort. 2-Substantial/Maximal Assistance-helper does MORE THAN HALF the effort. [place] lifts or holds trunk or limbs and provides more than half the effort. 1-Yrkjcohfn-jqnnyr does ALL the effort. Patient does none of the effort to complete the activity. Or, the assistance of 2 or more helpers is required for the patient to complete the activity. If activity was not attempted, code reason: 7-Patient Refused. 9-Not Applicable-not attempted and the patient did not perform the activity before the current illness, exacerbation or injury. 10-Not Attempted due to Environmental Limitations-(lack of equipment, weather restraints, etc.). 88-Not Attempted due to Medical Conditions or Safety Concerns. Roll Left & Right (QC): 6 Sit to Lying (QC): 6 Lying to Sitting/Side of Bed(Q: 6 Sit to Stand (QC): 4 Toilet Transfer (QC): 4 Weight Bearing Right Lower Extremity: Right Weight Bearing/Tolerated Gait Training Does the Patient Walk?: Yes Distance: 200' Walk 10 feet (QC): 4 Walk 50 ft with 2 Turns(QC): 4 Walk 150 ft (QC): 4 Gait Persons Needed: 1 Gait Assistive Device: FWW CGA for safety. Patient is walking with a fairly normal gait sequence, she is walking heel toe and getting knee flexion as she walks. Exercises Supine Ex: Ankle pumps, Quad Set, Heel Slides, Short Arc Quads, Straight leg raise Supine Reps: 10 (RLE) Treatments RLE exercises, bed mobility, transfers, ambulation. Assessment Current Status: Good Progress Patient tolerates exercises well and is able to perform them all IND with no assistance. Patient is steady during ambulation. PT Short Term Goals Short Term Goals Time Frame: Dec 18, 2019 PT Senior Living Goals Medical Collector Goals PT Medical Collector Goals Time Frame: Dec 24, 2019 Roll Left & Right (QC): 6 Sit to Lying (QC): 6 Lying-Sitting on Side/Bed(QC): 6 Sit to Stand (QC): 6 Chair/Fhz-fa-Iewoy Xfer(QC): 6 Toilet Transfer (QC): 6 Does the Patient Walk: Yes Walk 10 feet (QC): 6 Walk 50ft with 2 Turns (QC): 6 Walk 150 ft (QC): 6 1 Step (curb) (QC): 4 4 Steps (QC): 4 PT Plan Problem List Problem List: Activity Tolerance, Functional Strength, Safety, Balance, Gait, Transfer, Bed Mobility, ROM Treatment/Plan Treatment Plan: Continue Plan of Care Treatment Plan: Bed Mobility, Education, Functional Activity Deejay, Functional Strength, Gait, Safety, Therapeutic Exercise, Transfers Treatment Duration: Dec 24, 2019 Frequency: 11 times per week Estimated Hrs Per Day: .25 hour per day Patient and/or Family Agrees t: Yes Safety Risks/Education Patient Education: Gait Training, Transfer Techniques Teaching Recipient: Patient Teaching Methods: Demonstration, Discussion Response to Teaching: Reinforcement Needed Time/GCodes Time In: 1352 Time Out: 1421 Total Billed Treatment Time: 29 Total Billed Treatment 1 visit GT 14 EX 15 ELBA KELLEY PT Dec 18, 2019 14:43
--- NOTE | 2019-12-18 15:46 | NUR ---
IRF Evaluation Order received to evaluate patient for the ARU. Chart review complete and it appears patient is ambulating (200ft, FWW) and transferring with SBA. Additionally, discharge planning has taken place and it appears patient intends to return home with outpatient therapy. Thank you for this referral.
[2019-12-18 15:59] VITALS: BP 125/76
[2019-12-18 19:33] VITALS: BP 132/64
[2019-12-18 19:34] LABS: BILIRUBIN,URINE NEGATIVE (NEGATIVE); CLARITY,URINE CLEAR; COLOR,URINE YELLOW; GLUCOSE, URINE (UA) NEGATIVE (NEGATIVE); KETONES,URINE NEGATIVE (NEGATIVE); LEUKOCYTE ESTERASE ,URINE TRACE (NEGATIVE); NITRITE,URINE NEGATIVE (NEGATIVE); PROTEIN,URINE NEGATIVE (NEGATIVE)
[2019-12-18 19:47] LABS: BACTERIA,URINE TRACE /HPF; RBC,URINE RARE /HPF; WBC,URINE 0-2 /HPF
[2019-12-19] VITALS: BP 131/60
[2019-12-19] MEDS: oxyCODONE/APAP 5/325MG (PERCOCET 5) TABLET PO PRN ×4 (03:59→11:30)
[2019-12-19 04:10] VITALS: BP 148/65
--- NOTE | 2019-12-19 05:01 | DISCHARGE SUMMARY ---
DATE OF SERVICE: 12/19/2019 DIAGNOSES: 1. Right knee primary osteoarthritis. 2. Hypertension. 3. Hyperlipidemia. PROCEDURE: Right total knee arthroplasty. SUMMARY: The patient is a 64-year-old female who underwent a right total knee arthroplasty the day of admission. Postoperatively, she did very well. At the time of discharge, her wound was clean and dry. She had no calf tenderness. Negative Homans sign. She had cleared physical therapy. She was tolerating diet well and tolerating pain with oral pain medication. CONDITION AT DISCHARGE: Good. DISCHARGE DIET: Regular. FOLLOWUP: Followup is in three weeks. Home physical therapy has been arranged. DISCHARGE MEDICATIONS: Home medications and Percocet as needed for pain, aspirin one per day for 4 weeks. ACTIVITIES: Weightbearing as tolerated with a walker. Job ID: [id number] DocumentID: [id number] Dictated Date: 12/18/2019 18:03:21 Training Intern Date: 12/19/2019 05:00:48 Dictated By: MELIDA ZARAGOZA MD
[2019-12-19 05:46] LABS: HEMOGLOBIN 8.2 G/DL (11.5-16.0)
[2019-12-19] MEDS: ENOXAPARIN 30 MG/0.3 ML (LOVENOX) SYR SC SCH (05:59)
[2019-12-19] MEDS: MULTIVIT W/MINERALS TAB (THERAGRAN M) PO SCH (05:59)
[2019-12-19] MEDS ORDERED: morphine INJ 4 MG/ML 1 ML (VIAL/SYRINGE) IVP PRN (07:00)
--- NOTE | 2019-12-19 07:01 | Progress Note ---
Standard Progress Note Progress Notes/Assess & Plan Date Seen by a Provider: Dec 19, 2019 Time Seen by a Provider: 07:00 Progress/Assessment & Plan post op check No complaints radiographs--HW well positioned without fracture. RLE--2 plus DP pulse with brisk cap refill. spinal still in effect s/p RTKA mobilize when able Final Diagnosis no complaints Vital Signs Date Time Temp Pulse Resp B/P (MAP) Pulse Ox O2 Delivery O2 Flow Rate FiO2 12/19/19 06:39 18 12/19/19 04:10 37.1 59 18 148/65 (92) 97 Room Air 12/19/19 00:00 37.4 64 16 131/60 (83) 96 Room Air 12/18/19 19:45 95 Room Air 12/18/19 19:33 37.0 66 16 132/64 (86) 97 Room Air 12/18/19 18:00 18 12/18/19 15:59 38.2 71 16 125/76 (92) 96 Room Air 12/18/19 12:00 37.8 65 16 112/68 (83) 95 Room Air 12/18/19 08:00 37.7 68 14 117/63 (81) 93 Room Air 12/18/19 08:00 95 Room Air I & O 12/19/19 07:00 Intake Total 3470 ml Output Total 845 ml Balance 2625 ml Laboratory Tests Test 12/18/19 19:27 12/19/19 05:05 Range/Units Urine Color YELLOW Urine Clarity CLEAR Urine pH 6.0 5-9 Urine Specific [place] 1.025 H 1.016-1.022 Urine Protein NEGATIVE NEGATIVE Urine Glucose (UA) NEGATIVE NEGATIVE Urine Ketones NEGATIVE NEGATIVE Urine Nitrite NEGATIVE NEGATIVE Urine Bilirubin NEGATIVE NEGATIVE Urine Urobilinogen 0.2 < = 1.0 MG/DL Urine Leukocyte Esterase TRACE H NEGATIVE Urine RBC (Auto) NEGATIVE NEGATIVE Urine RBC RARE /HPF Urine WBC 0-2 /HPF Urine Squamous Epithelial Cells 5-10 /HPF Urine Crystals NONE /LPF Urine Bacteria TRACE /HPF Urine Casts NONE /LPF Urine Mucus NEGATIVE /LPF Urine Culture Indicated NO Hemoglobin 8.2 L 11.5-16.0 G/DL Hematocrit 25 L 35-52 % RLE--incision clean and dry. No calf tenderness s/p RTKA doing well DC home after PT today MELIDA ZARAGOZA MD Dec 19, 2019 07:01
[2019-12-19 08:00] VITALS: BP 114/75
[2019-12-19] MEDS: ASPIRIN E.C. 81 MG (ECOTRIN) TAB PO SCH (08:30)
[2019-12-19] MEDS: SENNA W/DOCUSATE (SENOKOT S) TABLET PO SCH (08:31)
[2019-12-19] MEDS: lisINopril 20 MG (PRINIVIL) TABLET PO SCH (08:32)
--- NOTE | 2019-12-19 09:58 | Physical Therapy Daily Note ---
PT Daily Note-Current Subjective Patient is agreeable to therapy at this time. Patient states that she has been in pain all morning. Pain Numeric Pain Scale: 7 Location: Right Location Body Site: Knee Appearance Patient sitting EOB with call light and bedside table within reach. present. Mental Status Patient Orientation: Person, Place, Time, Situation Transfers SCALE: Activities may be completed with or without assistive devices. 4-Navqmhrjvd-cgmuvxi completes the activity by him/herself with no assistance from a helper. 5-Set-up or Clean-up Assistance-helper sets up or cleans up; patient completes activity. [place] assists only prior to or following the activity. 4-Supervision or Touching Assistance-helper provides verbal cues and/or touching/steadying and/or contact guard assistance as patient completes activity. Assistance may be provided throughout the activity or intermittently. 3-Partial/Moderate Assistance-helper does LESS THAN HALF the effort. [place] lifts, holds or supports trunk or limbs, but provides less than half the effort. 2-Substantial/Maximal Assistance-helper does MORE THAN HALF the effort. [place] lifts or holds trunk or limbs and provides more than half the effort. 1-Oyrtwyjud-evrmya does ALL the effort. Patient does none of the effort to complete the activity. Or, the assistance of 2 or more helpers is required for the patient to complete the activity. If activity was not attempted, code reason: 7-Patient Refused. 9-Not Applicable-not attempted and the patient did not perform the activity before the current illness, exacerbation or injury. 10-Not Attempted due to Environmental Limitations-(lack of equipment, weather restraints, etc.). 88-Not Attempted due to Medical Conditions or Safety Concerns. Roll Left & Right (QC): 6 Lying to Sitting/Side of Bed(Q: 6 Sit to Stand (QC): 6 Weight Bearing Right Lower Extremity: Right Weight Bearing/Tolerated Gait Training Does the Patient Walk?: Yes Distance: 300' Walk 10 feet (QC): 6 Walk 50 ft with 2 Turns(QC): 6 Walk 150 ft (QC): 6 Gait Assistive Device: FWW Patient is steady during ambulation walking with a heel toe gait pattern. Wheelchair Training Does the Pt Use a Wheelchair?: No Stair Training Stair Training: Handrails/: 2 handrails #of Steps: 4 1 Step (curb) (QC): 4 4 Steps (QC): 4 Stairs: Pattern: Step to CGA for safety. Patient instructed on sequence. Exercises Seated Therapy Exercises: Ankle pumps, Long arc quads, Hip flexion Seated Reps: 15 (RLE) Treatments RLE exercises, bed mobility, ambulation, transfers, stairs. Assessment Current Status: Good Progress Patient tolerated stairs well and was steady during ascending/descending. Patient was more stiff at this time during exercises so was working in a limited ROM, but this improved as she got loosened up. PT Short Term Goals Short Term Goals Time Frame: Dec 18, 2019 PT Half-Way Goals Glass Grinder Goals PT Half-Way Goals Time Frame: Dec 24, 2019 Roll Left & Right (QC): 6 Sit to Lying (QC): 6 Lying-Sitting on Side/Bed(QC): 6 Sit to Stand (QC): 6 Chair/Dcz-ni-Qpsak Xfer(QC): 6 Toilet Transfer (QC): 6 Does the Patient Walk: Yes Walk 10 feet (QC): 6 Walk 50ft with 2 Turns (QC): 6 Walk 150 ft (QC): 6 1 Step (curb) (QC): 4 4 Steps (QC): 4 PT Plan Problem List Problem List: Activity Tolerance, Functional Strength, Safety, Balance, Gait, Transfer, Bed Mobility, ROM Treatment/Plan Treatment Plan: Continue Plan of Care, Discontinue PT, goals met Treatment Plan: Bed Mobility, Education, Functional Activity Deejay, Functional Strength, Gait, Safety, Therapeutic Exercise, Transfers Treatment Duration: Dec 24, 2019 Frequency: 11 times per week Estimated Hrs Per Day: .25 hour per day Patient and/or Family Agrees t: Yes Safety Risks/Education Patient Education: Gait Training, Transfer Techniques Teaching Recipient: Patient Teaching Methods: Demonstration, Discussion Time/GCodes Time In: 906 Time Out: 929 Total Billed Treatment Time: 23 Total Billed Treatment 1 visit GT 13 EX 10 ELBA KELLEY PT Dec 19, 2019 09:58
--- NOTE | 2019-12-19 16:39 | NUR ---
THIS RN WASTED 30ML OF ANALYTICAL CHEMISTRY TEACHER MORPHINE. Imer DUVAL RN WITNESSED.
--- OUTSIDE RECORDS SUMMARY | 2019-12-22 05:33 | XMS REPORT | Continuity of Care Document ---
Author Organization Unknown Address Unknown Phone Unavailable Allergies Active Description Code Type Severity Reaction Onset Reported/Identified Relationship to Patient Clinical Status Yes SULFA SULFA Mild N/A 08/12/2014 Yes Sulfa (Sulfonamide Antibiotics) [id number] 0491 Drug Allergy Unknown Rash 020 Medications There is no data. Problems Date Dx Coded Attending Type Code Diagnosis Diagnosed By 08/12/2014 LENÓ ERIC MD, Ot 455.0 INT HEMORRHOID W/O COMPL 08/12/2014 LEÓN ERIC MD, Ot 455.3 EXT HEMORRHOID W/O COMPL 08/12/2014 LEÓN ERIC MD Ot 562.10 DIVERTICULOSIS COLON (W/O MENT OF HEMORR 08/12/2014 LEÓN ERIC MD Ot V76.51 SCREEN MAL NEOP-COLON 06/11/2017 EMERALD HOOD APRN Ot M17 .0 BILATERAL PRIMARY OSTEOARTHRITIS OF KNEE 12/10/2019 MELIDA ZARAGOZA MD Ot Z01.812 ENCOUNTER FOR PREPROCEDURAL LABORATORY E 12/10/2019 MELIDA ZARAGOZA MD Ot M17.11 UNILATERAL PRIMARY OSTEOARTHRITIS, RIGHT 12/10/2019 MELIDA ZARAGOZA MD Ot Z01.812 ENCOUNTER FOR PREPROCEDURAL LABORATORY E 12/10/2019 MELIDA ZARAGOZA MD Ot Z01.818 ENCOUNTER FOR OTHER PREPROCEDURAL EXAMIN 12/12/2019 MELIDA ZARAGOZA MD Ot M17.11 UNILATERAL PRIMARY OSTEOARTHRITIS, RIGHT 12/12/2019 MELIDA ZARAGOZA MD Ot Z01.812 ENCOUNTER FOR PREPROCEDURAL LABORATORY E 12/12/2019 MELIDA ZARAGOZA MD Ot Z01.818 ENCOUNTER FOR OTHER PREPROCEDURAL EXAMIN Procedures There is no data. Results Test Result Range Complete blood count (CBC) with automate d white blood cell (WBC) differential - 12/10/19 10:10 Blood leukocytes automated count (number/volume) 5.6 10*3/uL 4.3-11.0 Blood erythrocytes automated count (number/volume) 4.26 10*6/uL 4.35-5.85 Venous blood hemoglobin measurement (mass/volume) 12.9 g/dL 11.5-16.0 Blood hematocrit (volume fraction) 40 % 35-52 Automated erythrocyte mean corpuscular volume 93 [ foz_us] 80-99 Automated erythrocyte mean corpuscular h emoglobin (mass per erythrocyte) 30 pg 25-34 Automated erythrocyte mean corpuscular h emoglobin concentration measurement (mass/volume) 33 g/dL 32-36 Automated erythrocyte distribution width ratio 13. 3 % 10.0- 14.5 Automated blood platelet count (count/volume) 263 10*3/uL 130-400 Automated blood platelet mean volume measurement 9.2 [foz_us] 7.4-10.4 Automated blood neutrophils/100 leukocytes 50 % 42-75 Automated blood lymphocytes/100 leukocytes 38 % 12-44 Blood monocytes/100 leukocytes 8 % 0-12 Automated blood eosinophils/100 leukocytes 3 % 0-10 Automated blood basophils/100 leukocytes 1 % 0-10 Blood neutrophils automated count (number/volume) 2.8 10*3 1.8-7.8 Blood lymphocytes automated count (number/volume) 2.1 10*3 1.0-4.0 Blood monocytes automated count (number/volume) 0. 5 10*3 0.0-1.0 Automated eosinophil count 0.2 10*3/uL 0 .0-0.3 Automated blood basophil count (count/volume) 0.1 10*3/uL 0.0-0.1 Complete urinalysis with reflex to cultu re - 12/10/19 10:10 Urine color determination YELLOW NRG Urine clarity determination SL CLOUDY N RG Urine pH measurement by test strip 7.0 5-9 Specific gravity of urine by test strip 1.015 1.016-1.022 Urine protein assay by test strip, semi-quantitative NEGATIVE NEGATIVE Urine glucose detection by automated test strip NE GATIVE NEGATIVE Erythrocytes detection in urine sediment by light micr oscopy NEGATIVE NEGATIVE Urine ketones detection by automated test strip NE GATIVE NEGATIVE Urine nitrite detection by test strip NEGATIVE NEGATIVE Urine total bilirubin detection by test strip NEGA TIVE NEGATIVE Urine urobilinogen measurement by automated test strip (mass/volume) 0.2 mg/dL < = 1.0 Urine leukocyte esterase detection by dipstick 2+ NEGATIVE Automated urine sediment erythrocyte cou nt by microscopy (number/high power field) [HPF] NRG Automated urine sediment leukocyte count by microscopy (number/high power field) TNTC NRG Bacteria detection in urine sediment by light microsco py MODERATE NRG Squamous epithelial cells detection in u rine sediment by light microscopy 10-25 NRG Crystals detection in urine sediment by light microsco py NONE NRG Casts detection in urine sediment by light microscopy NONE NRG Mucus detection in urine sediment by light microscopy NEGATIVE NRG Complete urinalysis with reflex to culture YES NRG PT panel in platelet poor plasma by coag ulation assay - 12/10/19 10:10 Prothrombin time (PT) in platelet poor plasma by coagu lation assay 13.0 s 12.2-14.7 INR in platelet poor plasma or blood by coagulation as say 0.9 0.8-1.4 Erythrocyte sedimentation rate by osman gren method - 12/10/19 10:10 Erythrocyte sedimentation rate by westergren method 24 mm 0- 30 Comprehensive metabolic panel - 12/10/19 10:10 Serum or plasma sodium measurement (moles/volume) 139 mmol/L 135-145 Serum or plasma potassium measurement (moles/volume) 4.0 mmol/L 3.6-5.0 Serum or plasma chloride measurement (moles/volume) 105 mmol/L 98-107 Carbon dioxide 25 mmol/L 21-32 Serum or plasma anion gap determination (moles/volume) 9 mmol/L 5-14 Serum or plasma urea nitrogen measurement (mass/volume ) 16 mg/dL 7-18 Serum or plasma creatinine measurement (mass/volume) 0.80 mg/dL 0.60-1.30 Serum or plasma urea nitrogen/creatinine mass ratio 20 NRG Serum or plasma creatinine measurement w ith calculation of estimated glomerular filtration rate > NRG Serum or plasma glucose measurement (mass/volume) 123 mg/dL 70-105 Serum or plasma calcium measurement (mass/volume) 9.8 mg/dL 8.5-10.1 Serum or plasma total bilirubin measurement (mass/volu me) 0.4 mg/dL 0.1-1.0 Serum or plasma alkaline phosphatase ayesha surement (enzymatic activity/volume) 64 U/L 40-136 Serum or plasma aspartate aminotransfera se measurement (enzymatic activity/volume) 11 U/L 5-34 Serum or plasma alanine aminotransferase measurement (enzymatic activity/volume) 17 U/L 0-55 Serum or plasma protein measurement (mass/volume) 7.5 g/dL 6.4-8.2 Serum or plasma albumin measurement (mass/volume) 4.4 g/dL 3.2-4.5 CALCIUM CORRECTED 9.5 mg/dL 8.5-10.1 Blood type T Indirect antibody screen [facility] - 12/10/19 10:10 ABO+Rh group AN NRG Blood group antibody screen NEGATIVE NR G Bacterial urine culture - 12/10/19 10:10 Bacterial urine culture [id number] NRG COLONY COUNT >100,000/ML NRG FTX;REPORTABLE SUSCEPTIBILITY REPORTED 12-12-19, 11 41. NRG FREE TEXT ENTRY 2 PRELIM RAPID ID BY VCP 12-11-19, [id number] NRG FREE TEXT ENTRY 3 ID CONFIRMED NRG Methicillin resistant Staphylococcus aur eus (MRSA) screening culture - 12/10/19 10:10 Methicillin resistant Staphylococcus aureus (MRSA) scr eening culture NEG NRG Dirithromycin susceptibility test by dis k diffusion - 12/10/19 10:10 Gentamicin susceptibility test by minimum inhibitory c oncentration <= NRG Trimethoprim/sulfamethoxazole susceptibi lity test by minimum inhibitoryconcentration <= NRG Levofloxacin susceptibility test by minimum inhibitory concentration > NRG Ampicillin susceptibility test by minimum inhibitory c oncentration > NRG Cefazolin susceptibility test by minimum inhibitory co ncentration 8 NRG Ceftriaxone susceptibility test by minimum inhibitory concentration <= NRG Ciprofloxacin susceptibility test by minimum inhibitor y concentration > NRG Meropenem susceptibility test by minimum inhibitory co ncentration <= NRG Nitrofurantoin susceptibility test by mi nimum inhibitory concentration <= NRG Amoxicillin and clavulanate potassium susc AKI = NRG Blood type T Indirect antibody screen [facility] - 12/17/19 11:34 WRISTBAND NUMBER [id number] NRG ABO+Rh group AN NRG Blood group antibody screen NEGATIVE NR G Whole blood hemoglobin and hematocrit [facility] - 12/18/19 05:47 Venous blood hemoglobin measurement (mass/volume) 9.2 g/dL 11.5-16.0 Blood hematocrit (volume fraction) 29 % 35-52 Whole blood basic metabolic panel - 03/03 05:47 Serum or plasma sodium measurement (moles/volume) 130 mmol/L 135-145 Serum or plasma potassium measurement (moles/volume) 3.8 mmol/L 3.6-5.0 Serum or plasma chloride measurement (moles/volume) 100 mmol/L 98-107 Carbon dioxide 23 mmol/L 21-32 Serum or plasma anion gap determination (moles/volume) 7 mmol/L 5-14 Serum or plasma urea nitrogen measurement (mass/volume ) 11 mg/dL 7-18 Serum or plasma creatinine measurement (mass/volume) 0.69 mg/dL 0.60-1.30 Serum or plasma urea nitrogen/creatinine mass ratio 16 NRG Serum or plasma creatinine measurement w ith calculation of estimated glomerular filtration rate > NRG Serum or plasma glucose measurement (mass/volume) 114 mg/dL 70-105 Serum or plasma calcium measurement (mass/volume) 7.8 mg/dL 8.5-10.1 Complete urinalysis with reflex to cultu re - 12/18/19 19:27 Urine color determination YELLOW NRG Urine clarity determination CLEAR NR G Urine pH measurement by test strip 6.0 5-9 Specific gravity of urine by test strip 1.025 1.016-1.022 Urine protein assay by test strip, semi-quantitative NEGATIVE NEGATIVE Urine glucose detection by automated test strip NE GATIVE NEGATIVE Erythrocytes detection in urine sediment by light micr oscopy NEGATIVE NEGATIVE Urine ketones detection by automated test strip NE GATIVE NEGATIVE Urine nitrite detection by test strip NEGATIVE NEGATIVE Urine total bilirubin detection by test strip NEGA TIVE NEGATIVE Urine urobilinogen measurement by automated test strip (mass/volume) 0.2 mg/dL < = 1.0 Urine leukocyte esterase detection by dipstick TRA CE NEGATIVE Automated urine sediment erythrocyte cou nt by microscopy (number/high power field) RARE NRG Automated urine sediment leukocyte count by microscopy (number/high power field) [HPF] NRG Bacteria detection in urine sediment by light microsco py TRACE NRG Squamous epithelial cells detection in u rine sediment by light microscopy 5-10 NRG Crystals detection in urine sediment by light microsco py NONE NRG Casts detection in urine sediment by light microscopy NONE NRG Mucus detection in urine sediment by light microscopy NEGATIVE NRG Complete urinalysis with reflex to culture NO NRG Whole blood hemoglobin and hematocrit [facility] - 12/19/19 05:05 Venous blood hemoglobin measurement (mass/volume) 8.2 g/dL 11.5-16.0 Blood hematocrit (volume fraction) 25 % 35-52 Encounters ACCT No. Visit Date/Time Discharge Status Pt. Type Provider Facility Loc./Unit Complaint [id number] 12/17/2019 05:51:00 11:20:00 DIS Inpatient MELIDA ZARAGOZA MD [facility] 4TH RIGHT KNEE DJD [id number] 12/10/2019 09:54:00 11:05:00 DIS Outpatient MELIDA ZARAGOZA MD [facility] PREOP RIGHT TKR [id number] 08/21/2019 13:09:00 019 23:59:59 CLS Preadmit BEKA WOODARD DO [facility] RAD SCREENING [id number] 05/23/2017 15:02:00 017 23:59:59 CLS Outpatient EMERALD HODO APRN [facility] RAD OSTEOARTHRITIS [id number] 08/12/2014 08:11:00 014 12:05:00 DIS Outpatient LEÓN ERIC MD [facility] SDC SCREENING [id number] 08/06/2014 07:46:00 23:59:59 CLS Outpatient
== END 2019-12-19 11:20 | disposition home health service (06) | DRG 470 ==
LOC: 4TH 05:51 → SURG 05:52 → 4TH 10:10
PROVIDERS: ADMIT Orthopaedic Surgery; ATTEND Orthopaedic Surgery
PROC: 0SRC0J9 Replacement of Right Knee Joint with Synthetic Substitute, Cemented, Open Approach (ICD-10-PCS; principal; 2019-12-17 08:02)
DX: M17.11 Unilateral primary osteoarthritis, right knee (principal); I10 Essential (primary) hypertension; E78.5 Hyperlipidemia, unspecified; E66.9 Obesity, unspecified; E03.9 Hypothyroidism, unspecified; K21.9 Gastro-esophageal reflux disease without esophagitis; Z68.36 Body mass index [BMI] 36.0-36.9, adult; Z79.82 Long term (current) use of aspirin
CPT/HCPCS: 36415; 73560; 80048; 81000; 85014; 85018; 86850; 86900; 86901; 94664

== ENCOUNTER 2020-03-19 08:07 | Outpatient (RCR) | payer MEDICARE, OTHER ==
[2020-03-15 13:35] VITALS: BP 168/81
[2020-03-15 13:59] LABS: BILIRUBIN,URINE NEGATIVE (NEGATIVE); CLARITY,URINE CLEAR; COLOR,URINE YELLOW; GLUCOSE, URINE (UA) NEGATIVE (NEGATIVE); KETONES,URINE NEGATIVE (NEGATIVE); LEUKOCYTE ESTERASE ,URINE NEGATIVE (NEGATIVE); NITRITE,URINE NEGATIVE (NEGATIVE); PROTEIN,URINE NEGATIVE (NEGATIVE)
[2020-03-15 14:00] LABS: BASOPHILS % (AUTO) 1 % (0-10); EOSINOPHILS # (AUTO) 0.2 10^3/uL (0.0-0.3); EOSINOPHILS % (AUTO) 3 % (0-10); HEMATOCRIT 41 % (35-52); HEMOGLOBIN 12.9 G/DL (11.5-16.0); LYMPHOCYTES # (AUTO) 2.9 X 10^3 (1.0-4.0); LYMPHOCYTES % (AUTO) 48 % (12-44); MEAN CORPUSCULAR HEMOGLOBIN 29 PG (25-34); MEAN CORPUSCULAR HGB CONC 32 G/DL (32-36); MEAN CORPUSCULAR VOLUME 92 FL (80-99); MEAN PLATELET VOLUME 9.3 FL (7.4-10.4); MONOCYTES # (AUTO) 0.4 X 10^3 (0.0-1.0); MONOCYTES % (AUTO) 7 % (0-12); NEUTROPHILS # (AUTO) 2.5 X 10^3 (1.8-7.8); NEUTROPHILS % (AUTO) 41 % (42-75); PLATELET COUNT 278 10^3/uL (130-400); RED CELL DISTRIBUTION WIDTH 14.6 % (10.0-14.5)
[2020-03-15 14:05] LABS: BACTERIA,URINE NEGATIVE /HPF
[2020-03-15 14:10] LABS: INR 0.8 (0.8-1.4); PROTHROMBIN TIME PATIENT 11.9 SEC (12.2-14.7)
[2020-03-15 14:20] LABS: ERYTHROCYTE SEDIMENTATION RATE 25 MM/HR (0-30)
[2020-03-15 14:21] LABS: ALANINE AMINOTRANSFERASE 15 U/L (0-55); ALBUMIN 4.5 GM/DL (3.2-4.5); ALKALINE PHOSPHATASE 67 U/L (40-136); BILIRUBIN,TOTAL 0.3 MG/DL (0.1-1.0); BUN/CREATININE RATIO 15; CALCIUM 9.6 MG/DL (8.5-10.1); CARBON DIOXIDE 26 MMOL/L (21-32); CHLORIDE 102 MMOL/L (98-107); CREATININE SERUM 0.78 MG/DL (0.60-1.30); GFR ESTIMATED > 60; GLUCOSE 90 MG/DL (70-105); POTASSIUM 3.8 MMOL/L (3.6-5.0); SODIUM 138 MMOL/L (135-145); TOTAL PROTEIN 8.3 GM/DL (6.4-8.2)
[~2020-03-19] VITALS: Ht 157 cm; Wt 87.3 kg
[~2020-03-19 08:07] MED LIST changes: +CHOL500050 PO; +HYDR-83 PO; +OXYC1TAB87 PO
[2020-03-24] MEDS ORDERED: OXYC1TAB87 PO (07:30)
== END 2020-03-19 14:06 | disposition home or self-care (01) ==
LOC: PREOP 08:07
PROVIDERS: ATTEND Orthopaedic Surgery
DX: Z01.818 Encounter for other preprocedural examination (principal); Z11.59 Encounter for screening for other viral diseases; M17.12 Unilateral primary osteoarthritis, left knee; M76.9 Unspecified enthesopathy, lower limb, excluding foot
CPT/HCPCS: 36415; 80053; 81000; 85025; 85610; 85652; 86850; 86900; 86901; 87081; 87635

== ENCOUNTER 2020-03-24 05:58 | Inpatient (IN) | payer MEDICARE, OTHER ==
--- NOTE | 2020-03-16 06:55 | HISTORY AND PHYSICAL ---
DATE OF SERVICE: INPATIENT HISTORY AND PHYSICAL DATE OF ADMISSION: 03/24/2020 This will be for inpatient admission on 03/24/2020 for left total knee arthroplasty and right knee manipulation under anesthesia. The patient will require regular inpatient admission due to gait abnormalities, need for physical therapy, pain management and comorbidities. HISTORY OF PRESENT ILLNESS: The patient is a 64-year-old female with longstanding left knee pain. She also recently underwent a right total knee arthroplasty and has had some stiffness. We will plan for a right knee manipulation while under anesthesia. She reports progressive loss of function, loss of the left knee. Radiographs revealed severe tricompartmental osteoarthritis with diffuse osteophyte formation in all three compartments. Due to functional impairment and failure to improve with conservative measures, the patient elected to proceed with surgical intervention. REVIEW OF SYSTEMS: No chest pain, no shortness of breath and no dysuria. PAST MEDICAL HISTORY: Hypertension, hyperlipidemia, and hyperthyroidism. PAST SURGICAL HISTORY: Right total knee arthroplasty and tubal ligation. FAMILY HISTORY: Significant for diabetes, coronary artery disease and chronic obstructive pulmonary disease. PRIMARY CARE PROVIDER: Dr. Corona. MEDICATIONS: Lisinopril, hydrochlorothiazide, simvastatin, estradiol and aspirin. ALLERGIES: No known drug allergies. SOCIAL HISTORY: The patient denies alcohol, tobacco use. PHYSICAL EXAMINATION: GENERAL: The patient is well developed, well-nourished, in no acute distress. HEENT: Normocephalic and atraumatic. Pupils are equal, round and reactive to light. Oropharynx is clear. NECK: Supple and no lymphadenopathy. LUNGS: Clear to auscultation bilaterally. HEART: Regular rate and rhythm. ABDOMEN: Soft, nontender and nondistended. EXTREMITIES: The left knee demonstrates varus alignment. Range of motion is 0/10/95. No varus valgus laxity. Negative anterior and posterior drawer. Her right knee demonstrates flexion to approximately 90 degrees. She lacks a few degrees to full extension. IMPRESSION: Left knee severe osteoarthritis, unresponsive to conservative measures and right knee stiffness, status post total knee arthroplasty. PLAN: Left total knee arthroplasty and right knee manipulation under anesthesia. The risks, benefits, options, ramifications and recovery were discussed at length with the patient. She understands and wishes to proceed. Job ID: [id number] DocumentID: [id number] Dictated Date: 03/15/2020 10:40:47 Bar Steward Date: 03/15/2020 11:36:56 Dictated By: MELIDA ZARAGOZA MD
[~2020-03-24] VITALS: Ht 157 cm; Wt 87.3 kg
[2020-03-24] VITALS (13 sets, daily range): BP systolic 97–171; BP diastolic 40–78
--- OUTSIDE RECORDS SUMMARY | 2020-03-24 06:04 | XMS REPORT | Continuity of Care Document ---
Author Organization Unknown Address Unknown Phone Unavailable Allergies Active Description Code Type Severity Reaction Onset Reported/Identified Relationship to Patient Clinical Status Yes SULFA SULFA Mild N/A 08/12/2014 Yes Sulfa (Sulfonamide Antibiotics) [id number] 0491 Drug Allergy Unknown Rash 020 Medications There is no data. Problems Date Dx Coded Attending Type Code Diagnosis Diagnosed By 09/13/1405 MILA BRASWELL, MELIDA [place] Ot M17.12 UNILATERAL PRIMARY OSTEOARTHRITIS, LEFT 09/13/1405 MILA BRASWELL, MELIDA [place] Ot M76.9 UNSPECIFIED ENTHESOPATHY, LOWER LIMB, EX 09/13/1405 MELIDA ZARAGOZA MD Ot Z01.818 ENCOUNTER FOR OTHER PREPROCEDURAL EXAMIN 09/13/1405 MILA BRASWELL, MELIDA [place] Ot Z11.59 ENCOUNTER FOR SCREENING FOR OTHER VIRAL 08/12/2014 HERNESTO BRASWELL, LEÓN Ot 455.0 INT HEMORRHOID W/O COMPL 08/12/2014 LEÓN ERIC MD Ot 455.3 EXT HEMORRHOID W/O COMPL 08/12/2014 HERNESTO BRASWELL, LEÓN Ot 562.10 DIVERTICULOSIS COLON (W/O MENT OF HEMORR 08/12/2014 HERNESTO BRASWELL, LEÓN Ot V76.51 SCREEN MAL NEOP-COLON 06/11/2017 EMERALD [...] UNILATERAL PRIMARY OSTEOARTHRITIS, RIGHT 12/12/2019 MELIDA ZARAGOZA MD, Ot Z01.812 ENCOUNTER FOR PREPROCEDURAL LABORATORY E 12/12/2019 MELIDA ZARAGOZA MD, Ot Z01.818 ENCOUNTER FOR OTHER PREPROCEDURAL EXAMIN 12/19/2019 MELIDA ZARAGOZA MD, Ot E03.9 HYPOTHYROIDISM, UNSPECIFIED 12/19/2019 MELIDA ZARAGOZA MD, Ot E66.9 OBESITY, UNSPECIFIED 12/19/2019 MELIDA ZARAGOZA MD, Ot E78.5 HYPERLIPIDEMIA, UNSPECIFIED 12/19/2019 MELIDA ZARAGOZA MD, Ot I1 0 ESSENTIAL (PRIMARY) HYPERTENSION 12/19/2019 MELIDA ZARAGOZA MD, Ot K21.9 GASTRO-ESOPHAGEAL REFLUX DISEASE WITHOUT 12/19/2019 MELIDA ZARAGOZA MD, Ot M17.11 UNILATERAL PRIMARY OSTEOARTHRITIS, RIGHT 12/19/2019 MELIDA ZARAGOZA MD, Ot N39.0 URINARY TRACT INFECTION, SITE NOT SPECIF 12/19/2019 MELIDA ZARAGOZA MD, Ot Z68.36 BODY MASS INDEX (BMI) 36.0-36.9, ADULT 12/19/2019 MELIDA ZARAGOZA MD, Ot Z79.82 ASBESTOS REMOVER (CURRENT) USE OF ASPIRIN Procedures Code Description Performed By Per formed On [id number] RE PLACE OF R KNEE JT WITH SYNTH SUB, ANGIE 12/17/2019 Results Test Result Range Complete blood count [...] 8.5-10.1 Blood type T Indirect antibody screen [facility] - 12/10/19 10:10 ABO+Rh group AN NRG Blood group antibody screen NEGATIVE NR G Bacterial urine culture - 12/10/19 10:10 Bacterial urine culture [id number] NRG COLONY COUNT >100,000/ML NRG FTX;REPORTABLE SUSCEPTIBILITY REPORTED 2-28-20, 11 41. NRG FREE TEXT ENTRY 2 PRELIM RAPID ID BY P 12-11-19, [id number] NR FREE TEXT ENTRY 3 ID CONFIRMED NRG [...] NRG Blood type T Indirect antibody screen [facility] - 12/17/19 11:34 WRISTBAND NUMBER [id number] NRG ABO+Rh group AN NRG Blood group antibody screen NEGATIVE NR G Whole blood hemoglobin and hematocrit [facility] 12/18/19 05:47 Venous blood hemoglobin measurement (mass/volume) [...] Blood hematocrit (volume fraction) 25 % 35-52 Complete blood count (CBC) with automate d white blood cell (WBC) differential - 03/15/20 13:40 Blood leukocytes automated count (number/volume) 6.0 10*3/uL 4.3-11.0 Blood erythrocytes automated count (number/volume) 4.39 10*6/uL 4.35-5.85 Venous blood hemoglobin measurement (mass/volume) 12.9 g/dL 11.5-16.0 Blood hematocrit (volume fraction) 41 % 35-52 Automated erythrocyte mean corpuscular volume 92 [ foz_us] 80-99 Automated erythrocyte mean corpuscular h emoglobin (mass per erythrocyte) 29 pg 25-34 Automated erythrocyte mean corpuscular h emoglobin concentration measurement (mass/volume) 32 g/dL 32-36 Automated erythrocyte distribution width ratio 14. 6 % 10.0- 14.5 Automated blood platelet count (count/volume) 278 10*3/uL 130-400 Automated blood platelet mean volume measurement 9.3 [foz_us] 7.4-10.4 Automated blood neutrophils/100 leukocytes 41 % 42-75 Automated blood lymphocytes/100 leukocytes 48 % 12-44 Blood monocytes/100 leukocytes 7 % 0-12 Automated blood eosinophils/100 leukocytes 3 % 0-10 Automated blood basophils/100 leukocytes 1 % 0-10 Blood neutrophils automated count (number/volume) 2.5 10*3 1.8-7.8 Blood lymphocytes automated count (number/volume) 2.9 10*3 1.0-4.0 Blood monocytes automated count (number/volume) 0. 4 10*3 0.0-1.0 Automated eosinophil count 0.2 10*3/uL 0 .0-0.3 Automated blood basophil count (count/volume) 0.0 10*3/uL 0.0-0.1 PT panel in platelet poor plasma by coag ulation assay - 03/15/20 13:40 Prothrombin time (PT) in platelet poor plasma by coagu lation assay 11.9 s 12.2-14.7 INR in platelet poor plasma or blood by coagulation as say 0.8 0.8-1.4 Erythrocyte sedimentation rate by osman gren method - 03/15/20 13:40 Erythrocyte sedimentation rate by westergren method 25 mm 0- 30 Comprehensive metabolic panel - 03/15/20 13:40 Serum or plasma sodium measurement (moles/volume) 138 mmol/L 135-145 Serum or plasma potassium measurement (moles/volume) 3.8 mmol/L 3.6-5.0 Serum or plasma chloride measurement (moles/volume) 102 mmol/L 98-107 Carbon dioxide 26 mmol/L 21-32 Serum or plasma anion gap determination (moles/volume) 10 mmol/L 5-14 Serum or plasma urea nitrogen measurement (mass/volume ) 12 mg/dL 7-18 Serum or plasma creatinine measurement (mass/volume) 0.78 mg/dL 0.60-1.30 Serum or plasma urea nitrogen/creatinine mass ratio 15 NRG Serum or plasma creatinine measurement w ith calculation of estimated glomerular filtration rate > NRG Serum or plasma glucose measurement (mass/volume) 90 mg/dL 70-105 Serum or plasma calcium measurement (mass/volume) 9.6 mg/dL 8.5-10.1 Serum or plasma total bilirubin measurement (mass/volu me) 0.3 mg/dL 0.1-1.0 Serum or plasma alkaline phosphatase ayesha surement (enzymatic activity/volume) 67 U/L 40-136 Serum or plasma aspartate aminotransfera se measurement (enzymatic activity/volume) 12 U/L 5-34 Serum or plasma alanine aminotransferase measurement (enzymatic activity/volume) 15 U/L 0-55 Serum or plasma protein measurement (mass/volume) 8.3 g/dL 6.4-8.2 Serum or plasma albumin measurement (mass/volume) 4.5 g/dL 3.2-4.5 CALCIUM CORRECTED 9.2 mg/dL 8.5-10.1 Blood type T Indirect antibody screen [facility] - 03/15/20 13:40 WRISTBAND NUMBER TNP NRG ABO+Rh group AN NRG Blood group antibody screen NEGATIVE NR G Methicillin resistant Staphylococcus aur eus (MRSA) screening culture - 03/15/20 13:40 Methicillin resistant Staphylococcus aureus (MRSA) scr eening culture NEG NRG Complete urinalysis with reflex to cultu re - 03/15/20 13:45 Urine color determination YELLOW NRG Urine clarity determination CLEAR NR G Urine pH measurement by test strip 6.0 5-9 Specific gravity of urine by test strip 1.020 1.016-1.022 Urine protein assay by test strip, [...] 1.0 Urine leukocyte esterase detection by dipstick NEG ATIVE NEGATIVE Automated urine sediment erythrocyte cou nt by microscopy (number/high power field) NONE NRG Automated urine sediment leukocyte count by microscopy (number/high power field) NONE NRG Bacteria detection in urine sediment by light microsco py NEGATIVE NRG Squamous epithelial cells detection in u rine sediment by light microscopy 2-5 NRG Crystals detection in urine sediment by light microsco py NONE NRG Casts detection in urine sediment by light microscopy NONE NRG Mucus detection in urine sediment by light microscopy NEGATIVE NRG Complete urinalysis with reflex to culture NO NRG Coronavirus SARS-CoV-2 SO 2018 - 0 13:20 Coronavirus Ab [Units/volume] in Serum Negative Negative Encounters ACCT No. Visit Date/Time Discharge Status Pt. Type Provider Facility Loc./Unit Complaint [id number] 03/19/2020 08:07:00 020 14:06:00 DIS Outpatient MELIDA ZARAGOZA MD [facility] PREOP LT KNEE OSTEOARTHRITIS ,RT KNEE ADHESIVE CAPSULITIS [id number] 12/17/2019 05:51:00 11:20:00 DIS Inpatient MELIDA ZARAGOZA MD [facility] 4TH RIGHT KNEE DJD [id number] 12/10/2019 09:54:00 11:05:00 DIS Outpatient MELIDA ZARAGOZA MD [facility] PREOP RIGHT TKR [id number] 08/21/2019 13:09:00 019 23:59:59 CLS Preadmit BEAK WOODARD DO [facility] RAD SCREENING [id number] 05/23/2017 15:02:00 017 23:59:59 CLS Outpatient EMERALD HOOD APRN [facility] RAD OSTEOARTHRITIS [id number] 08/12/2014 08:11:00 014 12:05:00 DIS Outpatient LEÓN ERIC MD [facility] SDC SCREENING [id number] 08/06/2014 07:46:00 014 23:59:59 CLS Outpatient [id number] 03/24/2020 08:00:00 P EN Preadmit MELIDA ZARAGOZA MD LT KNEE OSTEOARTHRITIS,RT KNEE ADHESIVE CAPSULITIS
[2020-03-24] MEDS: LACTATED RINGERS 1,000 ML IV PRN ×2 (06:16→06:51)
[2020-03-24] MEDS ORDERED: CEFUROXIME INJECTION 1,500 MG in WATER (STERILE) FOR INJECTION 15 ML IV ONE (06:45)
[2020-03-24] MEDS ORDERED: MIDAZOLAM 2 MG/2 ML (VERSED) VIAL ONE ×2 (06:47→07:21)
[2020-03-24] MEDS ORDERED: fentaNYL INJECTION 100 MCG/2 ML AMP ONE (07:21)
[2020-03-24] MEDS ORDERED: PROPOFOL INJECTION 50 ML IV ONE (07:27)
--- NOTE | 2020-03-24 07:28 | Progress Note-Pre Operative ---
Pre-Operative Progress Note H&P Reviewed The H&P was reviewed, patient examined and no changes noted. Date Seen by Provider: Mar 24, 2020 Time Seen by Provider: 07:20 Date H&P Reviewed: Mar 24, 2020 Time H&P Reviewed: 07:11 Pre-Operative Diagnosis: let knee primary osteoarthritis and right knee adhesions MELIDA ZARAGOZA MD Mar 24, 2020 07:28
--- NOTE | 2020-03-24 07:29 | Progress Note-Post Operative ---
Post-Operative Progess Note Surgeon (s)/Production Team Manager (s) Surgeon MELIDA ZARAGOZA MD Production Team Manager: Idris Hernandez Pre-Operative Diagnosis let knee primary osteoarthritis and right knee adhesions Post-Operative Diagnosis let knee primary osteoarthritis and right knee adhesions Procedure & Operative Findings Date of Procedure 03/24/20 Procedure Performed/Findings left total knee arthroplasty and right knee ZAY Anesthesia Type spinal Estimated Blood Loss Estimated blood loss (mL): minimal Specimens/Packing Specimens Removed none Packing: none MELIDA ZARAGOZA MD Mar 24, 2020 07:29
[2020-03-24] MEDS ORDERED: ACETAMINOPHEN 325 MG TABLET PO PRN (07:30)
[2020-03-24] MEDS ORDERED: diphenhydrAMINE 50 MG/ML INJ (BENADRYL) IVP PRN (07:30)
[2020-03-24] MEDS ORDERED: OXYC1TAB87 PO (07:30)
[2020-03-24] MEDS ORDERED: ONDANSETRON 4 MG/2 ML (SDV) Z0FRAN IVP PRN ×2 (07:30→09:45)
--- NOTE | 2020-03-24 07:32 | D/C HH Face to Face Order ---
D/C Face to Face Orders Reconcile Patient Problems Problems Reviewed?: Yes Instructions for Patient [facility] [employer], Patient Instructions/FollowUp: three weeks Physician to follow Patient: three weeks Discharge Diet for Home: Regular Diet Patient Data-Allergies,Ht & Wt Patient Allergies: Coded Allergies: Sulfa (Sulfonamide Antibiotics) (Verified Allergy, Unknown, Rash, 03/15/20) Height (Feet): 5 Height (Inches): 2.00 Weight (Pounds): 198 Home Health Need/Face to Face Date of Face to Face: Mar 24, 2020 Clinical Findings: Instability, Muscle weakness, Pain with ambulation, Unsteady gait I have seen Pt vspz-[id number]: Yes Discharged To: Home Diagnosis/Conditions: left total knee arthroplasty Patient is Homebound due to: Panchito fall risk due to instabilty, Muscle weakness, Pain w/ambulation Homebound Status Due to the above stated illness, injury or surgical procedure (medical condition or diagnosis) and associated clinical findings, the patient is homebound because of his/her inability to leave home except with aid of a supportive device and/or person AND leaving the home requires a considerable and taxing effort or is medically contraindicated. Pt req the following assistanc: Walker Home Health Nursing Orders Home Health Services Order: Physical Therapy-Evaluate & Treat DC left knee cara and apply steri strips 04/07/20 Home Health Infusion Therapy Line Start Date: Mar 24, 2020 Therapy Orders Therapy Orders: Physical Therapy, PT to assess for OT Therapy Specific Orders: Eval assistive deivces, Teach enviro modifications/safety, Gait training, Increase strength/endurance, Provider maintenance therapy, Restore ROM Certify Stmt I certify that this patient is under my care and that I, a nurse practitioner or a physician; a client services assistant working with me, had a face to face encounter that - meets the physician face to face encounter requirements with this patient as dated. MELIDA ZARAGOZA MD Mar 24, 2020 07:32
[2020-03-24] MEDS ORDERED: INTRA-ARTICULAR IU ONE ×5 (07:45)
[2020-03-24] MEDS ORDERED: TRANEXAMIC ACID 100 MG/ML 10 ML INJECTION IV ONE (08:00)
[2020-03-24] MEDS ORDERED: BUPIVACAINE 0.5% 30 ML (SENSORCAINE) VIAL ONE (08:22)
[2020-03-24] MEDS ORDERED: morphine INJ 10 MG/ML 1ML (SYR OR VIAL) IVP ONE (09:45)
--- NOTE | 2020-03-24 10:18 | Diagnostic Imaging Report ---
INDICATION: Left knee replacement surgery. TIME OF EXAM: 9:55 AM. FINDINGS: Two views of the left knee demonstrate postop changes of total knee arthroplasty. The prosthetic elements appear to be in good position. No fracture or loosening is seen. Overlying skin cara are noted. IMPRESSION: Satisfactory postop appearance to the left knee. Dictated by: Dictated on workstation # [id number]
--- NOTE | 2020-03-24 10:31 | Progress Note ---
Standard Progress Note Progress Notes/Assess & Plan Date Seen by a Provider: Mar 24, 2020 Time Seen by a Provider: 10:27 Progress/Assessment & Plan post op check no complaints spinal in effect radiographs--HW well positioned without fracture LLE brisk cap refill. 2 plus DP pulse s/p LTKA mobilize as able MELIDA ZARAGOZA MD Mar 24, 2020 10:31
--- NOTE | 2020-03-24 10:35 | NUR ---
JUAN R TRAVIS admitted to room 407-1, with an admitting diagnosis of left total knee with right knee manipulation, on 03/24/20 from PACU , accompanied by staff.JUAN R TRAVIS introduced to surroundings, call light, bed controls, phone, TV, temperature control, lights, meal times, smoking policy, visitor policy, side rail policy, bathrooms and showers. Patient Rights given to patient in the handbook. JUAN R TRAVIS verbalizes understanding that [facility] is not responsible for the loss or damage to any personal effects or valuables that are kept in the patients posession during their hospitalization.JUAN R TRAVIS verbalizes understanding of Interdisciplinary Patient Education. Patient and/or family were informed about the Rapid Response Team and its purpose.
[2020-03-24] MEDS: NS IV 1000 ML 1,000 ML IV SCH ×3 (12:11→23:42)
[2020-03-24] MEDS: morphine PCA 100 MG/100 ML BAG IV PRN (12:19)
[2020-03-24] MEDS: SENNA W/DOCUSATE (SENOKOT S) TABLET PO SCH ×2 (12:29→20:15)
[2020-03-24] MEDS: oxyCODONE/APAP 5/325MG (PERCOCET 5) TABLET PO PRN ×4 (12:29→23:02)
--- NOTE | 2020-03-24 15:18 | OPERATIVE REPORT ---
DATE OF SERVICE: 03/24/2020 PREOPERATIVE DIAGNOSES: 1. Left knee primary osteoarthritis. 2. Right knee adhesions, status post total knee arthroplasty. POSTOPERATIVE DIAGNOSES: 1. Left knee primary osteoarthritis. 2. Right knee adhesions, status post total knee arthroplasty. PROCEDURES: 1. Left total knee arthroplasty. 2. Right knee manipulation under anesthesia. SURGEON: Mateo Zaragoza MD CLINICAL VETERINARIAN: Idris Hernandez, who assisted throughout the procedure and closed the incision. ANESTHESIA: Spinal by Dr. Su. TOURNIQUET TIME: Approximately 75 minutes at 300 mmHg. ESTIMATED BLOOD LOSS: Minimal. DRAINS: None. COMPLICATIONS: None. MATERIALS: Microport cemented size 5 femur, cemented size 5 tibia with 12 mm insert and a cemented size 29 patellar button. The patient was transferred to the recovery room awake and in stable condition. POSTOPERATIVE PLAN: Routine protocol. STATEMENT OF MEDICAL NECESSITY: The patient is a 64-year-old female who previously underwent a right total knee arthroplasty, but developed stiffness. In addition, she had severe tricompartmental osteoarthritis and undergone treatment with injections, regional blocks and anti-inflammatories without relief. Due to functional impairment and failure to improve with conservative measures, the patient elected to proceed with surgical intervention for total knee arthroplasty on the left and manipulation on the right. DESCRIPTION OF PROCEDURE: After risks and benefits of procedure were discussed and questions were answered, informed consent was signed and placed on chart, the operative site was confirmed in the preoperative holding area initialed by the surgeon. The patient was then transferred to the operating room. After adequate levels of regional anesthetic were obtained, a timeout was called, confirming the operative site. The patient had approximately 70 degrees of flexion on the right, but full extension. Gradual pressure was applied until approximately 100 degrees of flexion was easily obtained. The patella tracked well following the procedure. The left lower extremity was then prepped and draped in the usual sterile fashion and with the leg elevated and the knee flexed, tourniquet was inflated to 300 mmHg. Standard anterior approach was utilized. Hemostasis was obtained with cautery. Medial parapatellar arthrotomy was performed leaving 1 cm cuff on the patella for later reattachment. A portion of the fat pad was resected. A subperiosteal release was carefully performed on the proximal medial tibia being careful to stay on the bony surface. The ACL was absent. The intramedullary guide was passed into the femur. The distal cutting block was placed, and distal cut was made. The femur sized to a size 5, the 5 cutting block was placed parallel to the epicondylar axis and cuts were made from posterior to anterior. There were multiple osteophytes posteriorly, which were resected. A subperiosteal release was then carefully performed on the posterior distal femur, being careful to stay on the bony surface. Intramedullary guide was then passed into the tibia. The cutting block was placed. The drop yin transected the intermalleolar axis and the cut was made. The 5 baseplate was placed and again the drop yin transected the intermalleolar axis. This was pinned into position and then a drill and keel punch were used to prepare. A 12 mm insert was placed. Femoral trial was placed, and the trochlear cut was made. The patella was then prepared using the freehand technique by resecting 10 mm off the undersurface. The peg guide was placed, and peg holes were drilled. A 29 patellar trial was placed. The knee was taken through range of motion. Full extension was easily obtained, 110 degrees of flexion was easily obtained. There was no anterior/posterior or medial/lateral laxity in flexion or extension. The trials were removed. The joint was copiously irrigated with pulse lavage. The periarticular block was placed in the posterior capsule, medial and lateral retinaculum, extensor mechanism and subcutaneous tissues. The bone ends were irrigated and dried and the tibial baseplate was cemented into position. Excessive cement was removed. The distal femur was irrigated and dried. The polyethylene insert was placed on the tibia. The femoral prosthesis was cemented into position. Excessive cement was removed. The knee was brought out into full extension until cement had cured. The undersurface of the patella was irrigated and dried. The patellar button was cemented into position. Excessive cement was removed. Once the cement had cured, the knee was taken through maintenance range of motion. Full extension was easily obtained approximately 115 degrees of flexion with gravity was easily obtained. There was no anterior/posterior or medial/lateral laxity in flexion or extension. The joint was further irrigated with pulse lavage. The arthrotomy was closed with #2 Tevdek in tiedck-uv-gydhx interrupted fashion. The knee was flexed. No undue tension was noted at the repair site. The patella tracked well. The subcutaneous tissues were irrigated with pulse lavage using a total of 6 liters throughout the procedure. A 0 Vicryl was used to deep subcutaneous tissue, 2-0 Vicryl for the superficial subcutaneous tissue, cara used on the skin. A soft dressing was applied. The patient was transferred to the recovery room, awake and in stable condition. The tourniquet was deflated after dressing application. Job ID: [id number] DocumentID: [id number] Dictated Date: 03/24/2020 09:38:36 Sales Coordinator Date: 03/24/2020 15:17:45 Dictated By: MATEO ZARAGOZA MD
--- NOTE | 2020-03-24 15:26 | Physical Therapy Evaluation ---
PT Evaluation-General Medical Diagnosis Admission Date Mar 24, 2020 at 05:58 Medical Diagnosis: OA left knee Onset Date: Mar 24, 2020 Therapy Diagnosis Therapy Diagnosis: weakness; abn gait Height/Weight Height (Feet): 5 Height (Inches): 2.00 Weight (Pounds): 198 Precautions Precautions/Isolations: Standard Precautions Weight Bear Status Right Lower Extremity: Right Weight Bearing/Tolerated Left Lower Extremity: Left Weight Bearing/Tolerated Referral Physician: Renetta Reason for Referral: Evaluation/Treatment Medical History Pertinent Medical History: HTN Additional Medical History hyperlipidemia, hyperthyroid; right TKR 3 months ago Current History Post left TKR secondary to OA; right knee manipulation due to gradual ROM loss. Reviewed History: Yes Social History Home: Single Level Current Living Status: Spouse Entry Into Home: Stairs With Railing Prior Prior Level of Function SCALE: Activities may be completed with or without assistive devices. 3-Jsvofpluxi-hlsxpnx completes the activity by him/herself with no assistance from a helper. 5-Set-up or Clean-up Assistance-helper sets up or cleans up; patient completes activity. [place] assists only prior to or following the activity. 4-Supervision or Touching Assistance-helper provides verbal cues and/or touching/steadying and/or contact guard assistance as patient completes act ivity. Assistance may be provided throughout the activity or intermittently. 3-Partial/Moderate Assistance-helper does LESS THAN HALF the effort. [place] lifts, holds or supports trunk or limbs, but provides less than half the effort. 2-Substantial/Maximal Assistance-helper does MORE THAN HALF the effort. [place] lifts or holds trunk or limbs and provides more than half the effort. 3-Lzclciicv-xtfkao does ALL the effort. Patient does none of the effort to complete the activity. Or, the assistance of 2 or more helpers is required for the patient to complete the activity. If activity was not attempted, code reason: 7-Patient Refused. 9-Not Applicable-not attempted and the patient did not perform the activity before the current illness, exacerbation or injury. 10-Not Attempted due to Environmental Limitations-(lack of equipment, weather restraints, etc.). 88-Not Attempted due to Medical Conditions or Safety Concerns. Bed Mobility: 6 Transfers (B,C,W/C): 6 Gait: 6 Stairs: 6 Indoor Mobility (Ambulation): Independent Stairs: Independent independent and active community ambulator PT Evaluation-Current Subjective Agrees to PT. Reports she has already walked to the bathroom. Pain Numeric Pain Scale: 8 Location: Left Location Body Site: Knee Pain Description: Ache Objective Patient Orientation: Person, Place, Time, Situation Attachments: Polar Pack, IV CPM and SCD's both in situ post treatment ROM/Strength ROM Lower Extremities Left knee flexion to 75 degrees AROM; right knee flexion to 90 degrees AROM Left CPM applied 0-60 degrees Right CPM applied 0-110 degrees Strength Lower Extremities WFL Integumentary/Posture Integumentary intact Bowel Incontinence: No Bladder Incontinence: No Posture normal and symmetrical Neuromuscular (Tone, Coordination, Reflexes) intact and functional Sensory Vision: Functional Hearing: Functional Hand Dominance: Right Sensation Right Lower Extremit: Intact Sensation Left Lower Extremity: Intact Transfers Roll Left to Right (QC): 4 Sit to Lying (QC): 4 Lying to Sitting/Side of Bed(Q: 4 Sit to Stand (QC): 4 (CGA for safety) Chair/Poc-qa-Svdpr Xfer(QC): 4 Toilet Transfer (QC): 4 Gait Does the Patient Walk?: Yes Mode of Locomotion: Walk Anticipated Mode of Locomotion: Walk Walk 10 feet (QC): 3 (min assist for safety due to surgery this date. ) Walk 50 ft with 2 Turns(QC): 3 Gait Assistive Device: FWW Balance Sitting Static: Good Sitting Dynamic: Good Standing Static: Good Standing Dynamic: Good Treatment walked to /from the bathroom and toileted with CGA; stood at sink to wash her hands with CGA. CPM's applied; per nursing, Dr. Jackson gave the "ok" for CPM on the right LE. Assessment/Needs Post elective left TKR and manipulation right knee. Will benefit from skilled PT to address functional ROM and strength and gait/mobility progression. She did will today in terms of transfers and gait. Rehab Potential: Good PT Freight Rate Clerk Goals Jail Goals PT Jail Goals Time Frame: Mar 29, 2020 Roll Left & Right (QC): 6 Sit to Lying (QC): 6 Lying-Sitting on Side/Bed(QC): 6 Sit to Stand (QC): 6 Does the Patient Walk: Yes Walk 10 feet (QC): 6 Walk 50ft with 2 Turns (QC): 6 Walk 150 ft (QC): 6 PT Plan Problem List Problem List: Activity Tolerance, Functional Strength, Safety, Balance, Gait, Transfer, Bed Mobility Treatment/Plan Treatment Plan: Continue Plan of Care Treatment Plan: Bed Mobility, Education, Functional Activity Deejay, Functional Strength, Gait, Safety, Therapeutic Exercise, Transfers Treatment Duration: Mar 29, 2020 Frequency: 6 times per week Estimated Hrs Per Day: .5 hour per day Patient and/or Family Agrees t: Yes Safety Risks/Education Patient Education: Gait Training, Transfer Techniques, Safety Issues Teaching Recipient: Patient Teaching Methods: Demonstration, Discussion Response to Teaching: Reinforcement Needed Discharge Recommendations Therapy Discharge Recommendati: Post Acute PT Time/GCodes Time In: 1430 Time Out: 1500 Total Billed Treatment Time: 30 Total Billed Treatment visit EVM 15 GT 15 CPM x 2; pads x 2 SOTERO UNDERWOOD PT Mar 24, 2020 15:26
[2020-03-24] MEDS: CEFUROXIME INJECTION 750 MG in WATER (STERILE) FOR INJECTION 10 ML IV SCH ×2 (16:18→23:42)
[2020-03-25] MEDS: oxyCODONE/APAP 5/325MG (PERCOCET 5) TABLET PO PRN ×9 (02:30→23:59)
[2020-03-25 04:21] VITALS: BP 116/66
[2020-03-25 06:39] LABS: HEMOGLOBIN 9.8 G/DL (11.5-16.0)
--- NOTE | 2020-03-25 07:02 | Anesthesia-Regional Post-Op ---
Regional Patient Condition Mental Status: Alert, Oriented x3 Circulation: Same as Pre-Op Headache: Absent Sensation: Full Recovery Motor Block: Absent Post Op Complications Complications None Follow Up Care/Instructions Patient Instructions None needed. Anesthesia/Patient Condition Patient is doing well, rates pain at 7-8, stable vital signs, no apparent adverse anesthesia problems. No complications reported per nursing. STEWART PRINCE CRNA Mar 25, 2020 07:02
[2020-03-25] MEDS: MULTIVIT W/MINERALS TAB (THERAGRAN M) PO SCH (07:21)
[2020-03-25] MEDS ORDERED: ENOXAPARIN 40 MG/0.4 ML (LOVENOX) SYR SC SCH (07:30)
[2020-03-25 08:00] VITALS: BP 166/76
--- NOTE | 2020-03-25 08:02 | Progress Note ---
Standard Progress Note Progress Notes/Assess & Plan Date Seen by a Provider: Mar 25, 2020 Time Seen by a Provider: 08:01 Progress/Assessment & Plan post op check no complaints spinal in effect radiographs--HW well positioned without fracture LLE brisk cap refill. 2 plus DP pulse s/p LTKA mobilize as able Final Diagnosis c/o pain denies paresthesias Vital Signs Date Time Temp Pulse Resp B/P (MAP) Pulse Ox O2 Delivery O2 Flow Rate FiO2 03/25/20 06:30 20 03/25/20 04:21 36.6 73 22 116/66 (83) 96 Room Air 03/24/20 23:35 36.7 63 20 122/54 (76) 97 Room Air 03/24/20 20:15 Room Air 03/24/20 19:55 36.8 67 20 135/78 (97) 97 Room Air 03/24/20 16:56 Room Air 03/24/20 15:25 36.4 75 16 116/71 (86) 98 Room Air 03/24/20 15:23 100 Room Air 03/24/20 12:00 36.6 63 18 129/77 (94) 100 Room Air 03/24/20 10:40 36.1 62 18 128/75 (92) 96 Room Air 03/24/20 10:32 16 126/60 (82) 100 Room Air 03/24/20 10:25 Room Air 03/24/20 10:24 16 128/58 (81) 100 03/24/20 10:10 16 113/53 (73) 100 03/24/20 10:02 Room Air 03/24/20 10:02 16 112/48 (69) 100 Room Air 03/24/20 09:50 16 101/49 (66) 100 03/24/20 09:40 16 97/45 (62) 100 03/24/20 09:32 Room Air 03/24/20 09:32 36.3 16 100/40 (60) 100 Room Air I & O 03/25/20 07:00 Intake Total 4195 ml Balance 4195 ml Laboratory Tests Test 03/25/20 05:41 Range/Units Hemoglobin 9.8 L 11.5-16.0 G/DL Hematocrit 31 L 35-52 % LLE--dressing int act. Neg Enzo's. Intact sensation to light touch throughout. Intact DF and PF of toes and ankle s/pLTKA doing well PT/OT MELIDA ZARAGOZA MD Mar 25, 2020 08:02
[2020-03-25] MEDS: SENNA W/DOCUSATE (SENOKOT S) TABLET PO SCH ×2 (08:18→20:30)
[2020-03-25] MEDS: ASPIRIN E.C. 81 MG (ECOTRIN) TAB PO SCH ×2 (08:18→08:20)
[2020-03-25] MEDS ORDERED: FAMOTIDINE 20 MG (PEPCID) TABLET PO PRN (08:30)
[2020-03-25] MEDS ORDERED: ESTRADIOL VAGINAL CREAM 42.5 GM (ESTRACE) VG SCH (08:30)
[2020-03-25] MEDS ORDERED: VITAMIN D3 125 MCG (5,000 UNITS) CAPSULE PO SCH (08:30)
[2020-03-25] MEDS: HYDROCHLOROTHIAZIDE 12.5 MG (HCTZ) CAP PO SCH (09:08)
[2020-03-25] MEDS: lisINopril 20 MG (PRINIVIL) TABLET PO SCH ×2 (09:08→20:30)
--- NOTE | 2020-03-25 10:00 | Physical Therapy Daily Note ---
PT Daily Note-Current Subjective Patient agrees to PT. No c/o. Pain Numeric Pain Scale: 5-Moderate Pain Location: Left Location Body Site: Knee Pain Description: Acute Mental Status Patient Orientation: Normal For Age Attachments: IV Transfers SCALE: Activities may be completed with or without assistive devices. 7-Dmlupmmlzb-snshwzq completes the activity by him/herself with no assistance f rom a helper. 5-Set-up or Clean-up Assistance-helper sets up or cleans up; patient completes activity. [place] assists only prior to or following the activity. 4-Supervision or Touching Assistance-helper provides verbal cues and/or touching/steadying and/or contact guard assistance as patient completes activity. Assistance may be provided throughout the activity or intermittently. 3-Partial/Moderate Assistance-helper does LESS THAN HALF the effort. [place] lifts, holds or supports trunk or limbs, but provides less than half the effort. 2-Substantial/Maximal Assistance-helper does MORE THAN HALF the effort. [place] lifts or holds trunk or limbs and provides more than half the effort. 4-Houulencj-mvwstv does ALL the effort. Patient does none of the effort to complete the activity. Or, the assistance of 2 or more helpers is required for the patient to complete the activity. If activity was not attempted, code reason: 7-Patient Refused. 9-Not Applicable-not attempted and the patient did not perform the activity before the current illness, exacerbation or injury. 10-Not Attempted due to Environmental Limitations-(lack of equipment, weather restraints, etc.). 88-Not Attempted due to Medical Conditions or Safety Concerns. Roll Left & Right (QC): 6 Sit to Lying (QC): 6 Lying to Sitting/Side of Bed(Q: 6 Sit to Stand (QC): 6 Toilet Transfer (QC): 6 Weight Bearing Right Lower Extremity: Right Weight Bearing/Tolerated Left Lower Extremity: Left Weight Bearing/Tolerated Gait Training Does the Patient Walk?: Yes Distance: 225' Walk 10 feet (QC): 5 Walk 50 ft with 2 Turns(QC): 5 Walk 150 ft (QC): 5 Gait Assistive Device: FWW Slow, steady, antalgic Wheelchair Training Does the Pt Use a Wheelchair?: No Exercises Supine Ex: Ankle pumps, Quad Set, Heel Slides, Straight leg raise Supine Reps: 15 (bilaterally) Seated Therapy Exercises: Long arc quads Seated Reps: 15 Assessment Patient tolerated treatment well and is in bed with CPM's bilaterally in place. PT to increase activity as tolerated by patient. PT Plastics Engineer Goals Alf Goals PT Plastics Engineer Goals Time Frame: Mar 29, 2020 Roll Left & Right (QC): 6 Sit to Lying (QC): 6 Lying-Sitting on Side/Bed(QC): 6 Sit to Stand (QC): 6 Does the Patient Walk: Yes Walk 10 feet (QC): 6 Walk 50ft with 2 Turns (QC): 6 Walk 150 ft (QC): 6 PT Plan Treatment/Plan Treatment Plan: Continue Plan of Care Treatment Plan: Bed Mobility, Education, Functional Activity Deejay, Functional Strength, Gait, Safety, Therapeutic Exercise, Transfers Treatment Duration: Mar 29, 2020 Frequency: 6 times per week Estimated Hrs Per Day: .5 hour per day Patient and/or Family Agrees t: Yes Time/GCodes Time In: 840 Time Out: 904 Total Billed Treatment Time: 24 Total Billed Treatment 1 visit EX 13 min GT 11 min ELBA KELLEY PT Mar 25, 2020 10:00
--- NOTE | 2020-03-25 11:38 | NUR ---
IRF Evaluation Order received to evaluate patient for the ARU. Chart review complete and it does appear patient is independent with bed mobility and toilet transfers, as well as ambulating (225ft, FWW) with set-up; therefore, patient does not require intensive therapies. Thank you for this referral.
--- NOTE | 2020-03-25 11:56 | Occ Therapy Progress Note ---
Therapy Progress Note OT order received, chart reviewed. Pt. in bed with right CPM on when therapy entered room. Spouse assisting her with donning polar pack to left knee. OT assisted with positioning of this. Spoke with her about occupational therapy. Pt. states that she has been through this before with her other knee. Pt. reports that she has all needed equipment, and even practiced her shower chair before this surgery. Pt. has supportive spouse and family to assist as needed. Pt. declines OOB activity, as she was just up. Declines ADLs or occupational therapy training. Verbalizes that OT is not warranted at this time. OT would be happy to come back if pt. has any further questions. Thank you for this referral. 1, visit [id number] No charge JADEN BIRMINGHAM OT Mar 25, 2020 11:56
[2020-03-25 12:00] VITALS: BP 149/79
[2020-03-25] MEDS: NS IV 1000 ML 1,000 ML IV SCH (12:19)
--- NOTE | 2020-03-25 13:34 | NUR ---
CM/SS visited with the patient for social service consult. Plan: The patient will return home with Outpatient physical therapy. Outpatient PT: The patient was here for prior knee replacement and used [facility] (Yung Rehman). She would like to continue with them. CM/SS contacted the office ([phone]) and faxed over outpatient referral form, H&P, face sheet, and insurance card. The patients appointment is set up for Sunday at 9:45 a.m. DME: The patient uses [employer]. The patient still has her walker from previous surgery; therefore, one is not needed. The patient and her are wanting patient to have a CPM machine. CM/SS informed them they can contact Dr. Jackson's office and ask for a script. They verbalized understanding. Will continue to follow.
--- NOTE | 2020-03-25 13:51 | Physical Therapy Daily Note ---
PT Daily Note-Current Subjective Patient agrees to PT. Pain Numeric Pain Scale: 5-Moderate Pain Location: Left Location Body Site: Knee Pain Description: Acute Mental Status Patient Orientation: Normal For Age Attachments: IV Transfers SCALE: Activities may be completed with or without assistive devices. 2-Zivhsbrobb-zbdyelp completes the activity by him/herself with no assistance from a helper. 5-Set-up or Clean-up Assistance-helper sets up or cleans up; patient completes activity. [place] assists only prior to or following the activity. 4-Supervision or Touching Assistance-helper provides verbal cues and/or touching/steadying and/or contact guard assistance as patient completes activity. Assistance may be provided throughout the activity or intermittently. 3-Partial/Moderate Assistance-helper does LESS THAN HALF the effort. [place] lifts, holds or supports trunk or limbs, but provides less than half the effort. 2-Substantial/Maximal Assistance-helper does MORE THAN HALF the effort. [place] lifts or holds trunk or limbs and provides more than half the effort. 4-Qfycqmaol-zghakq does ALL the effort. Patient does none of the effort to complete the activity. Or, the assistance of 2 or more helpers is required for the patient to complete the activity. If activity was not attempted, code reason: 7-Patient Refused. 9-Not Applicable-not attempted and the patient did not perform the activity before the current illness, exacerbation or injury. 10-Not Attempted due to Environmental Limitations-(lack of equipment, weather restraints, etc.). 88-Not Attempted due to Medical Conditions or Safety Concerns. Roll Left & Right (QC): 6 Sit to Lying (QC): 6 Lying to Sitting/Side of Bed(Q: 6 Sit to Stand (QC): 6 Toilet Transfer (QC): 6 Weight Bearing Right Lower Extremity: Right Weight Bearing/Tolerated Left Lower Extremity: Left Weight Bearing/Tolerated Gait Training Does the Patient Walk?: Yes Distance: 250' Walk 10 feet (QC): 6 Walk 50 ft with 2 Turns(QC): 6 Walk 150 ft (QC): 6 Gait Assistive Device: FWW Exercises Supine Ex: Ankle pumps, Quad Set, Straight leg raise Supine Reps: 15 Seated Therapy Exercises: Long arc quads Seated Reps: 15 Assessment Patient improving with treatment plan and will dismiss to home tomorrow with spo use. Patient in bed with polar pack in place/declined CPM at this time. PT [facility] Goals [facility] Goals PT [facility] Goals Time Frame: Mar 29, 2020 Roll Left & Right (QC): 6 Sit to Lying (QC): 6 Lying-Sitting on Side/Bed(QC): 6 Sit to Stand (QC): 6 Does the Patient Walk: Yes Walk 10 feet (QC): 6 Walk 50ft with 2 Turns (QC): 6 Walk 150 ft (QC): 6 PT Plan Treatment/Plan Treatment Plan: Continue Plan of Care Treatment Plan: Bed Mobility, Education, Functional Activity Deejay, Functional Strength, Gait, Safety, Therapeutic Exercise, Transfers Treatment Duration: Mar 29, 2020 Frequency: 6 times per week Estimated Hrs Per Day: .5 hour per day Patient and/or Family Agrees t: Yes Time/GCodes Time In: 1305 Time Out: 1329 Total Billed Treatment Time: 24 Total Billed Treatment 1 visit EX 13 min GT 11 min ELBA KELLEY PT Mar 25, 2020 13:51
--- NOTE | 2020-03-25 14:00 | NUR ---
This RN took over patient care at this time. patient alert and orientated. resting in bed at this time with at bedside. patient verbalizes no additional needs at this time
[2020-03-25 16:00] VITALS: BP 125/69
[2020-03-25] MEDS: morphine PCA 100 MG/100 ML BAG IV PRN (18:38)
--- NOTE | 2020-03-25 18:40 | NUR ---
MEDIA OPERATOR pain medication bag changed at this time
[2020-03-25 20:00] VITALS: BP 150/75
[2020-03-25] MEDS ORDERED: SIMvastatin 40 MG (ZOCOR) TAB PO SCH (21:00)
[2020-03-25 23:25] VITALS: BP 144/71
[2020-03-26] MEDS: NS IV 1000 ML 1,000 ML IV SCH (00:01)
--- NOTE | 2020-03-26 01:24 | DISCHARGE SUMMARY ---
DATE OF SERVICE: DIAGNOSES: 1. Left knee primary osteoarthritis. 2. Right knee adhesions, status post total knee arthroplasty. 3. Hypertension. 4. Hyperlipidemia. 5. Hypothyroidism. PROCEDURES: 1. Left total knee arthroplasty. 2. Right knee manipulation under anesthesia. SUMMARY: The patient is a 64-year-old female who underwent a left total knee arthroplasty and right knee manipulation on the day of admission. Postoperatively, she did very well. At time of discharge, her wound was clean and dry. She had no calf tenderness. Negative Homans sign. She cleared physical therapy. She was tolerating diet well and tolerating pain with oral pain medication. CONDITION AT DISCHARGE: Good. DISCHARGE DIET: Regular. FOLLOWUP: Followup is in three weeks. ACTIVITIES: Weightbearing as tolerated with walker as needed. Home physical therapy has been arranged. DISCHARGE MEDICATIONS: Home medications, aspirin one per day for 4 weeks and Percocet as needed for pain. Job ID: [id number] DocumentID: [id number] Dictated Date: 03/25/2020 17:43:16 Grain Picker Date: 03/26/2020 01:23:32 Dictated By: MELIDA ZARAGOZA MD
[2020-03-26 03:11] VITALS: BP 153/70
[2020-03-26] MEDS: oxyCODONE/APAP 5/325MG (PERCOCET 5) TABLET PO PRN ×2 (03:20→06:23)
[2020-03-26 06:00] LABS: HEMOGLOBIN 9.4 G/DL (11.5-16.0)
[2020-03-26] MEDS: MULTIVIT W/MINERALS TAB (THERAGRAN M) PO SCH (06:23)
[2020-03-26] MEDS ORDERED: LEVOTHYROXINE 112 MCG (LEVOTHROID) TAB PO SCH (06:30)
[2020-03-26] MEDS ORDERED: MULTIVIT W/MINERALS TAB (THERAGRAN M) PO SCH (07:00)
--- NOTE | 2020-03-26 07:03 | Progress Note ---
Standard Progress Note Progress Notes/Assess & Plan Date Seen by a Provider: Mar 26, 2020 Time Seen by a Provider: 07:02 Progress/Assessment & Plan post op check no complaints spinal in effect radiographs--HW well positioned without fracture LLE brisk cap refill. 2 plus DP pulse s/p LTKA mobilize as able Final Diagnosis No complaints Vital Signs Date Time Temp Pulse Resp B/P (MAP) Pulse Ox O2 Delivery O2 Flow Rate FiO2 03/26/20 06:24 20 03/26/20 03:11 37.0 80 20 153/70 (97) 97 Room Air 03/25/20 23:25 36.8 71 18 144/71 (95) 97 Room Air 03/25/20 20:15 Room Air 03/25/20 20:00 37.4 75 18 150/75 (100) 97 Room Air 03/25/20 19:08 20 03/25/20 16:00 37.2 69 18 125/69 (87) 96 Room Air 03/25/20 12:00 36.9 71 18 149/79 (102) 97 Room Air 03/25/20 09:00 Room Air 03/25/20 08:00 37.0 74 18 166/76 (106) 97 Room Air I & O 03/26/20 07:00 Intake Total 2908 ml Balance 2908 ml Laboratory Tests Test 03/26/20 05:38 Range/Units Hemoglobin 9.4 L 11.5-16.0 G/DL Hematocrit 29 L 35-52 % Creatinine 0.65 0.60-1.30 MG/DL LLE--incision clean and dry. No calf tenderness. neg Enzo's s/p LTKA doing well DC after PT today MELIDA ZARAGOZA MD Mar 26, 2020 07:03
[2020-03-26] MEDS ORDERED: morphine INJ 4 MG/ML 1 ML (VIAL/SYRINGE) IVP PRN (07:15)
[2020-03-26 08:05] VITALS: BP 117/65
--- NOTE | 2020-03-26 08:17 | NUR ---
RESEARCH AIDE DCD WITH JANE RN-70ML WASTED & WITNESSED
[2020-03-26 08:30] VITALS: BP 117/65
[2020-03-26] MEDS: ASPIRIN E.C. 81 MG (ECOTRIN) TAB PO SCH (08:35)
[2020-03-26] MEDS: HYDROCHLOROTHIAZIDE 12.5 MG (HCTZ) CAP PO SCH (08:35)
[2020-03-26] MEDS: SENNA W/DOCUSATE (SENOKOT S) TABLET PO SCH (08:35)
[2020-03-26] MEDS: lisINopril 20 MG (PRINIVIL) TABLET PO SCH (08:35)
--- NOTE | 2020-03-26 08:46 | Physical Therapy Daily Note ---
PT Daily Note-Current Subjective Patient agrees to PT. Pain Numeric Pain Scale: 3 Location: Left Location Body Site: Knee Pain Description: Acute Mental Status Patient Orientation: Normal For Age Transfers SCALE: Activities may be completed with or without assistive devices. 5-Ufqunmskld-xozibjj completes the activity by him/herself with no assistance from a helper. 5-Set-up or Clean-up Assistance-helper sets up or cleans up; patient completes activity. [place] assists only prior to or following the activity. 4-Supervision or Touching Assistance-helper provides verbal cues and/or touching/steadying and/or contact guard assistance as patient completes activity . Assistance may be provided throughout the activity or intermittently. 3-Partial/Moderate Assistance-helper does LESS THAN HALF the effort. [place] lifts, holds or supports trunk or limbs, but provides less than half the effort. 2-Substantial/Maximal Assistance-helper does MORE THAN HALF the effort. [place] lifts or holds trunk or limbs and provides more than half the effort. 5-Jdqpfycgv-tehoxv does ALL the effort. Patient does none of the effort to complete the activity. Or, the assistance of 2 or more helpers is required for the patient to complete the activity. If activity was not attempted, code reason: 7-Patient Refused. 9-Not Applicable-not attempted and the patient did not perform the activity before the current illness, exacerbation or injury. 10-Not Attempted due to Environmental Limitations-(lack of equipment, weather restraints, etc.). 88-Not Attempted due to Medical Conditions or Safety Concerns. Roll Left & Right (QC): 6 Lying to Sitting/Side of Bed(Q: 6 Sit to Stand (QC): 6 Weight Bearing Right Lower Extremity: Right Weight Bearing/Tolerated Left Lower Extremity: Left Weight Bearing/Tolerated Gait Training Does the Patient Walk?: Yes Distance: 300' Walk 10 feet (QC): 6 Walk 50 ft with 2 Turns(QC): 6 Walk 150 ft (QC): 6 Gait Assistive Device: FWW reciprocal pattern Stair Training Stair Training: Handrails/: 2 handrails #of Steps: 4 1 Step (curb) (QC): 6 4 Steps (QC): 6 Stairs: Pattern: Step to Exercises Seated Therapy Exercises: Ankle pumps, Long arc quads Seated Reps: 15 Assessment Patient tolerated treatment well and will dismiss to home on this date. Patient has FWW and CPM for home use. Home Health to follow. PT [facility] Goals [facility] Goals Time Frame: Mar 29, 2020 Roll Left & Right (QC): 6 Sit to Lying (QC): 6 Lying-Sitting on Side/Bed(QC): 6 Sit to Stand (QC): 6 Does the Patient Walk: Yes Walk 10 feet (QC): 6 Walk 50ft with 2 Turns (QC): 6 Walk 150 ft (QC): 6 PT Plan Treatment/Plan Treatment Plan: Discontinue PT, goals met Treatment Plan: Bed Mobility, Education, Functional Activity Deejay, Functional Strength, Gait, Safety, Therapeutic Exercise, Transfers Treatment Duration: Mar 29, 2020 Frequency: 6 times per week Estimated Hrs Per Day: .5 hour per day Patient and/or Family Agrees t: Yes Time/GCodes Time In: 804 Time Out: 819 Total Billed Treatment Time: 15 Total Billed Treatment 1 visit FA 15 min ELBA KELLEY PT Mar 26, 2020 08:46
== END 2020-03-26 08:30 | disposition home health service (06) | DRG 470 ==
LOC: 4TH 05:58 → SURG 05:59 → 4TH 10:37
PROVIDERS: ADMIT Orthopaedic Surgery; ATTEND Orthopaedic Surgery
PROC: 0SRD0J9 Replacement of Left Knee Joint with Synthetic Substitute, Cemented, Open Approach (ICD-10-PCS; principal; 2020-03-24 07:28)
PROC: 0SSCXZZ Reposition Right Knee Joint, External Approach (ICD-10-PCS; 2020-03-24 07:28)
DX: M17.12 Unilateral primary osteoarthritis, left knee (principal); I10 Essential (primary) hypertension; E78.5 Hyperlipidemia, unspecified; E03.9 Hypothyroidism, unspecified; M25.861 Other specified joint disorders, right knee
CPT/HCPCS: 36415; 73560; 82565; 85014; 85018; 86850; 86900; 86901; 94664

== ENCOUNTER → 2021-03-15 | Outpatient (CLI) | payer MEDICARE, OTHER ==
[~2021-03-15] MED LIST changes: +ACHD5005 PO; -HYDR-83 PO; +MULT-567 PO; -MULT1TAB69 PO
--- NOTE | 2021-03-15 19:21 | Diagnostic Imaging Report ---
INDICATION: Left hip pain. Time of exam: 2:46 PM Two views of the left hip were obtained. Femoral acetabular alignment is normal. The femoral head and neck are intact. No fractures are seen. Rami are intact. IMPRESSION: No acute bony abnormality is detected. Dictated by: Dictated on workstation # [id number]
== END ==
LOC: RAD FS 14:38
PROVIDERS: ATTEND Nurse Practitioner
DX: M25.552 Pain in left hip (principal)
CPT/HCPCS: 73502